=== PATIENT | female | born 1945 | race Caucasian/White ===

== ENCOUNTER 2016-06-21 13:44 | Emergency (ER) | payer MEDICARE ==
--- NOTE | ~2016-06-21 | CT4 ---
[facility] A Service of [facility] RADIOLOGY TEXT RESULTS PATIENT: NOELLE BHATT LOCATION: [facility] : [birth year] UNIT #: [id number] AGE: [address]: Lalo Kline MD SEX: F ORDER DR: [id number] [facility] [address] [place], [place] [address] [id number] MR#: [id number] Acc #: [id number] NAME: NOELLE BHATT. : 1945 SEX: F STUDY DATE/TIME: 06/21/2016 15:22 UNIT: JESSICA ROOM: STUDY DESCRIPTION: CT Abd and Pelv Wo Cont Attending Physician: Lalo Kline M.D. Primary Care Physician: Dori Dillard M.D. MEDICAL IMAGING REPORT This report is preliminary unless electronic signature is present EXAM CT of the abdomen and pelvis. DATE OF EXAM 06/21/2016 INDICATIONS Hematochezia. Diarrhea. TECHNIQUE CT of the abdomen and pelvis without contrast. Coronal and sagittal reconstructions were obtained. NOTE: This CT exam was performed with one or more of the following radiation dose reduction techniques: automatic exposure control, adjustment of mA and/or kV according to patient size, and iterative reconstruction. COMPARISON None available. FINDINGS ABDOMEN: There is a long segment of circumferential thickening of the descending colon and sigmoid colon indicative of a colitis. There is no abscess or perforation. There is mild pericolonic inflammation. The appendix is normal. The bowel is not dilated. There is a small volume of ascites in the pelvis. The solid abdominal organs are within normal limits. There is no urinary calculi. No hydronephrosis. There is a benign cyst in the superior pole of the left kidney. The gallbladder is not distended. PELVIS: No pelvic mass. The uterus is surgically absent. The ovaries are within normal limits. There is mild pelvic floor insufficiency with descent of all 3 pelvic floor compartments below the pubococcygeal line. [facility] A Service [facility] RADIOLOGY TEXT RESULTS PATIENT: NOELLE BHATT LOCATION: [facility] : 47 UNIT #: [id number] AGE: [address]: Lalo Kline MD SEX: F ORDER DR: No acute osseous abnormalities. IMPRESSION 1. Long segment of circumflex thickening and inflammation of the descending colon and sigmoid colon indicative of a colitis. Dictated by... Ibrahima Mondragon M.D. THIS IS AN ELECTRONICALLY VERIFIED REPORT Ibrahima Mondragon M.D. at 06/25/2016 9:41 AM ZULEIMA/skye TD: 06/21/2016 18:37 JOB #: [id number] MEDICAL IMAGING REPORT Page 1 of 1 COPY
[~2016-06-21 13:44] MED LIST: ACETAMINOPHEN325 MG PO; AMLODIPINE BESY10 MG PO; ASPIRIN PO; ASPIRIN81 MG PO; CARDURA8 MG PO; CHLORTHALIDONE25 MG PO; EFFIENT10 MG PO; GLUCOPHAGE500 MG PO; GLYBURIDE2.5 M1 PO; HYDRALAZINE HCL25 MG PO; HYDROCHLOROTHIA25 MG PO; HYDROCODONE-APA1 T41 PO; IMDUR PO; IMDUR-ER60 M1 PO; ISOSORBIDE DINI40 MG PO; LEVOFLOXACIN750 MG PO; LEVOTHROID200 MCG PO; LISINOPRIL PO; LOPRESSOR PO; METFORMIN HCL500 M1 PO; METOPROLOL SUCC25 MG PO; METOPROLOL TART25 MG PO; NITROGLYGERIN0.4 MG SL; NITROGYLCERIN SUBLINGUAL; NORVASC PO; PAXIL PO; PLAVIX PO; PRAVASTATIN SOD40 MG PO; PRINIVIL40 MG PO; SYNTHROID175 MCG PO; TOPROL XL50 MG PO; TRAMADOL HCL50 M1 PO; VERAPAMIL ER120 M1 PO
[2016-06-21 14:00] LABS: BASOPHIL% 0.4 % (0-2.5); EOSINOPHIL# 0.1 X10e3 (0-0.7); EOSINOPHIL% 1.2 % (0.0-7.0); HEMATOCRIT 32.5 % (35.0-45.0); HEMOGLOBIN 10.3 gm/dL (12.0-16.0); LYMPHOCYTE# 2.1 X10e3 (1.0-3.5); MEAN CORPUSCULAR HGB CONC 31.7 g/dL (30-36); MEAN PLATELET VOLUME 8.9 FL (6.5-11.5); MONOCYTE# 0.7 X10e3 (0-1.0); MONOCYTE% 7.9 % (3.0-12.0); NEUTROPHIL# 5.8 X10e3 (1.5-7.1); NEUTROPHIL% 66.5 % (40-75); PLATELET COUNT 278 X10e3 (140-420); RED BLOOD COUNT 4.12 X10e (3.90-5.30); RED CELL DISTRIBUTION WIDTH 14.3 % (11.0-15.5); WHITE BLOOD COUNT 8.7 X10e3 (4.0-10.5)
[2016-06-21 14:01] LABS: DIFF IND NO
[2016-06-21 14:13] LABS: PROTHROMBIN TIME (PATIENT) 10.7 SECONDS (9.6-11.5)
[2016-06-21 14:26] LABS: ALBUMIN SERUM 3.5 g/dL (3.5-5.0); ALKALINE PHOSPHATASE 53 U/L (32-92); ALT (SGPT) 10 U/L (10-40); AST (SGOT) 13 U/L (10-42); BILIRUBIN, DIRECT <0.1 mg/dL (0.0-0.2); BILIRUBIN,INDIRECT 0.3 mg/dL (0.0-0.9); BILIRUBIN,TOTAL 0.4 mg/dL (0.2-2.0); BLOOD UREA NITROGEN 22 mg/dL (9-23); BUN/CREATININE RATIO 18.33; CALCIUM SERUM 9.3 mg/dL (8.4-10.2); CARBON DIOXIDE 26 mmol/L (22-31); CHLORIDE 99 mmol/L (100-111); CREATININE SERUM 1.2 mg/dL (0.6-1.4); GLOM FILT RATE Estimated 46.4 mL/min (>60); GLUCOSE FASTING 185 mg/dL (70-110); POTASSIUM 3.8 mmol/L (3.5-5.1); PROTEIN TOTAL SERUM 7.2 g/dL (6.0-8.3); SODIUM 136 mmol/L (135-145)
[2016-09-03] MEDS ORDERED: AMLODIPINE BESY10 MG PO (14:10)
[2016-09-03] MEDS ORDERED: LEVOTHYROXINE150 MCG PO (14:10)
[2016-09-03] MEDS ORDERED: FIBER GUMMIES1 EACH PO (14:11)
== END 2016-06-21 16:40 | disposition home or self-care (01) ==
LOC: CED 13:44
PROVIDERS: Emergency Medicine
DX: K52.9 Noninfective gastroenteritis and colitis, unspecified (principal); I10 Essential (primary) hypertension; E11.9 Type 2 diabetes mellitus without complications
CPT/HCPCS: 36415; 74176; 80048; 80076; 85025; 85610; 85730; 86850; 86900; 86901; 96360; 99284

== ENCOUNTER 2016-07-05 15:28 | Inpatient (IN) | payer OTHER, MEDICARE ==
--- NOTE | ~2016-07-05 | OR ---
Unit #: [id number] #: [id number] Patient: NOELLE BHATT [id number] [address] [place], [place] [address] [id number] MR#: [id number] NAME: NOELLE BHATT. ROOM: [facility] Date of Procedure: 07/11/2016 Admission Date: 07/05/2016 Surgeon: Stevie Eaton Jr., M.D. : 1945 Attending Physician: Connie Davila M.D. Primary Care Physician: Dori Dillard M.D. OPERATIVE REPORT INDICATIONS FOR PROCEDURE The patient is a 70-year-old white female, who was admitted with evidence of GI bleeding. She has been worked up and noted to have two cancers of the colon, one at the sigmoid distally and one at the ileocecal valve area. She also was noted to have a large polyp, which was biopsied of the proximal sigmoid and there was a question of whether she may have some colitis involving the left colon. It was felt that the patient needed a subtotal colectomy and she is brought to the operating room at this time for this procedure. PREOPERATIVE DIAGNOSES Multiple cancers of the colon with possible colitis. POSTOPERATIVE DIAGNOSES Multiple cancers of the colon with possible colitis without evidence of any gross metastatic disease, although she had some questionable firm lymph nodes in the pelvic area. ANESTHESIA General with endotracheal intubation. PROCEDURES PERFORMED Exploratory laparotomy with subtotal colectomy and [id number] NAHEED ileoproctostomy. DESCRIPTION OF PROCEDURE The patient was positioned in supine position. After being anesthetized and intubated, she was prepped and draped in routine fashion for exploration through midline incision. An incision was made extending 3 to 4 inches above the umbilicus and 3 inches below the umbilicus. This was carried down through the subcutaneous tissue down through the linea alba of the peritoneal cavity. Upon opening the peritoneal cavity, there was no free intra-abdominal fluid. The remainder of the incision was opened with the cutting edge of the Bovie cautery. Intra-abdominal exploration was carried out. There was a palpable mass in the cecum corresponding to the one tattooed and one also in the distal sigmoid colon without evidence of any external spread of the tumor and no evidence of any hepatic metastases. There were some palpable lymph nodes at the base of the sigmoid colon that were questionable as far as positivity. No ascites. No carcinomatosis or other abnormalities. At this point, the distal ilium was freed up along with the ileocecal valve area and the appendix and the Unit #: [id number] #: [id number] Patient: NOELLE BHATT distal ileum was then stapled and transected with a NAHEED stapling device. Mesenteric vessels were taken near their base, especially of the ileocolic artery after being clamped, divided, and ligated with heavy silk 0 and #1 sutures. The mesentery of the right colon was then clamped, divided, and ligated with 0 silk sutures. The mesentery of the transverse colon around the hepatic flexure was then mobilized and several vessels in the hepatocolic ligament were hemoclipped and divided. The mesenteric vessels in the transverse colon were then clamped, divided, and ligated with 0 silk sutures. The splenic flexure was taken down with vessels being either hemoclipped or ligated with 0 silk sutures or cauterized with the Bovie cautery. There was no evidence of any splenic injury after the splenic flexure was taken down. The left colon was then freed up all the way down to the distal sigmoid, where there was a tattoo from the previous scope and palpable tumor with no evidence of any externally spread tumor. The mesentery on the left colon was likewise clamped, divided, and ligated with [address] down past the tumor. Using a contour stapler, the distal colon was stapled and transected. The ureters on both sides were easy to identify and well away from any injury or dissection. After the specimen was removed, it was sent to pathology. There were some firm pelvic lymph nodes in the area of where the tumor was distally and these were dissected free of the surrounding tissue with special attention to the ureters and several small vessels were hemoclipped and divided and the lymph node on the left pelvic area and some lymph nodes posterior to the sigmoid in the sacral hollow were sent separately. After hemostasis was achieved with the Bovie cautery and several stick ties, the pelvis was irrigated and the distal ileum brought down and anastomosed fzky-[id number] to the distal sigmoid rectal area with a NAHEED stapling device. The staple line was checked. There was no evidence of any bleeding. The remaining opening closed with continuous 3-0 Vicryl Delmi stitch followed by interrupted 3-0 silk Lembert sutures. The mesenteric defect was closed with several 2-0 silk smnubu-gc-cltzc sutures. The abdomen was copiously irrigated with saline solution. A #7 Samuel-Sepulveda drain was placed in the pelvic area and brought out through the lateral site in the right lateral lower abdominal wall area. After hemostasis was noted, the midline was closed with interrupted #1 Vicryl suture, single fascial layer closure. The subcu was irrigated and after hemostasis was achieved with Bovie cautery, skin edges were approximated with stainless-steel skin clips and skin stapling device. Sterile dressings were applied externally. Estimated blood loss was less than 350 mL. The patient received less than 6000 mL crystalloid solution during the procedure. Sponges and instruments counts were correct x3. There were no drains used except the Samuel-Speulveda in the pelvic area and no complications. The patient was taken to the recovery room with stable vital signs in satisfactory condition. Dictated by... Stevie Eaton Jr., MMorgan CARTWRIGHT/adarsh TD: 07/12/2016 14:32 JOB #: [id number] Unit #: [id number] #: [id number] Patient: NOELLE BHATT OPERATIVE REPORT Page 1 of 1 X Stevie Eaton MD X PROCEDURE OPERATIVE NOTE
--- NOTE | ~2016-07-05 | DS ---
Unit #: [id number] #: [id number] Patient: NOELLE BHATT [id number] [address] [address] [id number] I MR#: [id number] NAME: NOELLE BHATT. ROOM: [facility] Age: 70 Sex: F Admission Date: 07/05/2016 : 1945 Discharge Date: 07/16/2016 Attending Physician: Connie Davila M.D. Primary Care Physician: Dori Dillard M.D. DISCHARGE SUMMARY DISCHARGE DIAGNOSES 1. Multiple cancers of the colon with no evidence of gross metastasis. 2. Possible acute colitis. 3. GI bleed. 4. Anemia secondary to acute blood loss. 5. Coronary artery disease. 6. Hypertension. 7. Diabetes mellitus type 2, uncontrolled. 8. Hyperlipidemia. 9. Hypothyroidism. 10. Hypokalemia. 11. Hypomagnesemia. 12. Moderate protein malnutrition. 13. Mild hyponatremia. 14. Elevated CEA at 6.3. CONSULTANTS Dr. Eaton. Dr. Tavarez. PROCEDURES PERFORMED The patient had colonoscopy which showed colon masses arising from the ileocecal valve. Also, the second mass in the sigmoid area. The patient had exploratory laparotomy with subtotal colectomy and brgf-kq-ndoe ileal proctostomy. DIAGNOSTIC DATA LABORATORY: Glucose 158, sodium 133, potassium 3.2, creatinine 0.8, carbon dioxide 28, AST 14, ALT 10, alkaline phosphatase 29, total bilirubin 0.5, albumin 2.4, magnesium 1.5, phosphorus 3.0, white blood cell count 6.0, hemoglobin 9.0, platelets 258. IMAGING: CAT scan of the abdomen and pelvis shows long segment of circumflex, thickening and inflammation of the descending colon and sigmoid colon, indicative of colitis. ALLERGIES No known drug allergies. DISCHARGE MEDICATIONS 1. Metformin 500 mg p.o. b.i.d. 2. Loperamide 2 mg p.o. b.i.d. p.r.n. diarrhea. 3. Zofran 4 mg q.4 h. p.r.n. nausea. 4. Bentyl 20 mg t.i.d. Unit #: [id number] #: [id number] Patient: NOELLE BHATT 5. Coreg 6.25 mg p.o. b.i.d. 6. Norvasc 10 mg p.o. daily. 7. Lipitor 20 mg daily. 8. Lisinopril 40 mg daily. 9. Lortab 5 mg q.4 h. p.r.n. pain. 10. Synthroid 137 mcg p.o. daily. 11. Potassium 20 mEq p.o. daily. HOSPITAL COURSE The patient is a 70-year-old admitted because of diarrhea and bleeding per rectum. Multiple colon cancers: The patient was seen by Dr. Tavarez. The patient had a colonoscopy that showed more than one mass. Later LSA had been consulted and the patient had subtotal colectomy with avhp-ht-[id number] ileal proctostomy. Currently she is having diarrhea. She has mild nausea, but tolerating diet okay. The patient is okay to be discharged as per surgeon. GI bleed secondary to colon mass. Currently resolved. Anemia secondary to acute blood loss: No acute bleeding currently. Hemoglobin is 9.0. The patient does not need blood transfusion during the hospital course. Initial CAT scan showing colitis, most likely from the colon cancer. The patient did receive antibiotics, but she does not need antibiotics to take home. Moderate protein malnutrition. Continue with high protein diet at home. Hypertension: Well controlled. Diabetes mellitus type 2: Controlled. Coronary artery disease: The patient was seen by cardiology for preoperative clearance. The patient was started on Lipitor. I gave a prescription for it. Hypokalemia and hypomagnesemia: Replace before discharge. I am going t ogive potassium prescription for a week. The patient will have a BMP in one week time and follow up with primary care physician with results. FOLLOWUP 1. The patient will be discharged home with home health. 2. Follow up with primary care physician in one week time. 3. Follow up with Dr. Eaton in two weeks time upon discharge. Dictated by... Vinny Breaux TD: 07/16/2016 14:12 JOB #: [id number] CC: Dori Dillard M.D. Unit #: [id number] #: [id number] Patient: NOELLE BHATT DISCHARGE SUMMARY Page 1 of 1 X Connie Davila MD [facility] SUMMARY
--- NOTE | ~2016-07-05 | FU ---
[facility] Nutrition Therapy DATE: 07/15/16 Patient: NOELLE BHATT Physician: MARK Address: [address] [place] [address] Room/Bed: [address] [place] [address], Zip: [place] [address] Admit Date: 07/05/16 Date of : [birth year] Height: 5 3 Weight: 138 63 NUTRITION MONITORING/FOLLOW-UP: Reason: PT SEEN FOR FOLLOW-UP + CONSULT RE: DIET EDUCATION DX: GI BLEED Anthropometrics: 5'3", WT: 138# (63 KG), BMI: 24.4 -WEIGHTS HAVE BEEN STABLE SINCE ADMIT Labs: GLU: 162, BUN: <5, CA+:7.9, ALB: 2.4, NA+:131 Meds: D5%, LIPITOR, NOVOLOG, PHENERGAN, ZOFRAN I&O's: , 3 BMs NOTED Skin: PREVIOUSLY NOTED Estimated Nutrition Needs: INCREASED NEEDS 2' CURRENT CONDITION Assessment: CHART REVIEWED AND EVENTS NOTED. PT SEEN FOR FOLLOW-UP. PT REPORTS APPETITE SLOWLY IMPROVING, TOLERATING FULL LIQUID DIET. PT REPORTS EATING OATMEAL THIS AM. PT ADDS "I AM SLOWLY INCREASING MY PO INTAKE". PT REQUESTS FOR ENSURE CLEAR TO BE D/C'D, RD SUGGESTED OTHER SUPPLEMENTS, PT WILLING TO TRY ENSURE PUDDING BID, RD TO ORDER. RD ENCOURAGED ADEQUATE KCAL AND PROTEIN INTAKE (SLOW INTAKE), PT AGREED. RD PROVIDED WRITTEN AND VERBAL HIGH FIBER + LIST OF FOODS AND FIBER CONTENT DIET EDUCATION. PT DEMONSTRATED UNDERSTANDING OF THE TOPIC. PT REPORTED NO DIET QUESTIONS AT THIS TIME. RD TO REMAIN AVAILABLE. Dx: UNINTENTIONAL WEIGHT LOSS R/T GI SX, SUSPECTED DECREASED APPETITE AEB 3 PTS MALNUTRITION RISK SCORE.-ACTIVE INADEQUATE NUTRIENT INTAKE R/T DECREASED APPETITE, CURRENT CONDITION AE PT REPORT ABOVE.-ACTIVE ALTERED NUTRIENT NEEDS R/T CURRENT CONDITION AEB NPO/CLEAR X 5 DAYS.-RESOLVED NEW DX: ALTERED NUTRIENT NEEDS R/T DX, CURRENT CONDITION AEB PT ON FULL LIQUID DIET. Intervention: 1. FULL LIQUID DIET 2. ENSURE CLEAR D/C'D 3. ENSURE PUDDING BID 4. HIGH FIBER DIET EDUCATION Monitoring, Evaluation and Goals: [facility] Nutrition Therapy DATE: 07/15/16 Patient: NOELLE BHATT Physician: MARK Address: [address] [place] [address] Room/Bed: [address] [place] [address], Zip: [place] [address] Admit Date: 07/05/16 Date of : [birth year] Height: 5 3 Weight: 138 63 1. ORAL INTAKE; CONSUME >50% OF MEALS W/NO C/O N/V/D (PO>50%)-ACTIVE 2. WEIGHTS; PREVENT FURTHER WEIGHT LOSS-ACTIVE 3. LABS; WNL-ACTIVE 4. GI; PROMOTE REGULAR GI FUNCTION-ACTIVE MONITOR: -PO INTAKE/APPETITE -WEIGHTS -SUPPLEMENT INTAKE Recommendations: 1. PLEASE D/C ENSURE CLEAR BID W/MEALS 2. PLEASE ORDER ENSURE PUDDING (NITHYA) BID W/MEALS 3. ADVANCE DIET TOLERATED W/NO C/O N/V/D TO HIGH FIBER DIET -APPRECIATE FAMILY AND STAFF TO ENCOURAGE ADEQUATE KCAL AND PROTEIN INTAKE RD WILL F/U PER PROTOCOL PT IS MILDLY COMPROMISED Respectfully, GABRIEL DE LUNA MS, RD, LD Food and Nutritional Services [facility] cc: client file
--- NOTE | ~2016-07-05 | CO ---
Unit #: [id number] #: [id number] Patient: NOELLE BHATT [id number] [address] [place], [place] [address] [id number] I MR#: [id number] NAME: NOELLE BHATT. ROOM: 547 Age: 70 Sex: F Admission Date: 07/05/2016 : 1945 Attending Physician: Connie Davila M.D. Primary Care Physician: Dori Dillard M.D. Consultation Date: 07/09/2016 CONSULTATION REPORT BRIEF SUMMARY The patient is a 70-year-old white female, who was admitted complaining of rectal bleeding. She has also had a 20-pound weight loss over the past six months. She had a CAT scan performed approximately two weeks ago which revealed long segment of the left colon suspicious for colitis. She had been on oral antibiotics and when presented to the emergency room was noted to have a hemoglobin down the range of 8.7 g. She had felt weak at home and had no syncope though. She has a known past history for coronary artery disease and has had a stent placed and has been on Plavix chronically. She has also had a known past history for hypertension, diabetes mellitus type 2, thrombocytopenia although her platelets are normal now, hypothyroidism, and a hysterectomy. MEDICATIONS She is on multiple medications. These are listed in the nursing sheet. ALLERGIES None known. FAMILY HISTORY Remarkable for the fact her mother had pancreatic cancer but no colon cancer. SOCIAL HISTORY The patient is , lives (1) . Has a normal good appetite. No recent weight change. Nonsmoker. Nondrinker. 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 IMMUNIZATIONS Up to date. REVIEW OF SYSTEMS Twelve systems performed which are nonremarkable except that in the present illness. PHYSICAL EXAMINATION VITAL SIGNS: The patient is afebrile. Vital signs are normal. HEENT: Nonremarkable. NECK: Supple. CHEST: Equal bilateral expansion with bilateral equal breath sounds. LUNGS: Clear bilaterally. HEART: Regular rhythm without murmurs or gallops. There is no evidence of cardiomegaly clinically. ABDOMEN: Soft, nontender, benign without palpable mass or organomegaly. There is no gross abdominal distention. No guarding, rebound. Active Unit #: [id number] #: [id number] Patient: NOELLE BHATT bowel sounds present. No evidence of ascites or hernias. EXTREMITIES: Full range of motion without limitation. There is no evidence of peripheral edema. BACK: No CVA tenderness. NEUROLOGIC: Grossly intact. IMPRESSION From her colonoscopy, the patient has two cancers (one of the ileocecal valve area and the other of the sigmoid area at approximately 17 cm). She also has a questionable segment of colitis and had a large polyp removed at 30 cm. At this point, would probably think she will need a subtotal colectomy but she also will need cardiac clearance. For now, I would hold her Plavix, set up blood for her operation, and go ahead with possible subtotal colectomy. Dictated by... Stevie Eaton Jr., MJayesh. GABBIE/ruma TD: 07/09/2016 14:35 JOB #: [id number] CONSULTATION REPORT Page 1 of 1 X Stevie Eaton MD X CONSULTATION REPORT
--- NOTE | ~2016-07-05 | EKG ---
PATIENT: NOELLE BHATT UNIT #: [id number] Ventricular Rate: 91 BPM Atrial Rate: 91 BPM P-R Interval: 128 ms QRS Duration: 80 ms Q-T Interval: 324 ms QTC Calculation(Bezet): 398 ms P Savannah: 71 degrees Calculated R Savannah: 43 degrees Calculated T Savannah: 61 degrees Diagnosis Line: Normal sinus rhythm Diagnosis Line: Left ventricular hypertrophy Diagnosis Line: Abnormal ECG Diagnosis Line: When compared with ECG of 05-SEP-2013 12:33, Diagnosis Line: Vent. rate has increased BY 30 BPM Diagnosis Line: ST now depressed in Anterior leads Diagnosis Line: T wave inversion now evident in Inferior leads Diagnosis Line: T wave inversion less evident in Lateral leads Diagnosis Line: Confirmed by LEANDRO MONAHAN MD ([id number]) on Diagnosis Line: 07/09/2016 10:27:03 PM INTERPRETING MD: KELLEY
--- NOTE | ~2016-07-05 | FU ---
[facility] Nutrition Therapy DATE: 07/10/16 Patient: NOELLE BHATT Physician: MARK Address: [address] [place] [address] Room/Bed: [address] [place] [address], Zip: [place] [address] Admit Date: 07/05/16 Date of : [birth year] Height: 5 3 Weight: 138 62.8 NUTRITION MONITORING/FOLLOW-UP: Reason: PT SEEN FOR FOLLOW-UP DX: GI BLEED Anthropometrics: 5'3", WT: 138# (63 KG), BMI: 24.4 -WEIGHTS HAVE BEEN STABLE SINCE ADMIT-ADMIT WEIGHT: 141# Labs: K+:3.2, GLU: 120, BUN: 8, ALB: 2.9, AST: 9, ALT: 7, LIPASE: 15 Meds: KCL, ZOFRAN, NOVOLOG, NACL I&O's: 2815/1378, 3 BMs NOTED Skin: ISSUES NOTED IN RD ASSESSMENT 07/06/16 Estimated Nutrition Needs: 9018-7724 KCAL (25-30 KCAL/KG BW) 64-83 G PRO (1.0-1.3 G PRO/KG BW) FLUIDS CONSISTENT W/KCAL NEEDS Assessment: CHART REVIEWED AND EVENTS NOTED. PT SEEN FOR FOLLOW-UP. PT REPORTS POOR/FAIR PO INTAKE 2' DECREASED APPETITE, NOTING C/O N/D. OF NOTE, PT IS NPO/CLEAR X [address] FOR SUBTOTAL COLECTOMY TOMORROW 07/12/16, ?COLITIS. THIS RD ENCOURAGED ADEQUATE KCAL AND PROTEIN INTAKE AND SUPPLEMENT INTAKE (ENSURE CLEAR ORDERED), PT REQUESTS DIFFERENT FLAVOR-APPLE, RD WILL ORDER. PT REPORTED NO DIET QUESTIONS AT THIS TIME. RD TO CONTINUE TO FOLLOW. Dx: UNINTENTIONAL WEIGHT LOSS R/T GI SX, SUSPECTED DECREASED APPETITE AEB 3 PTS MALNUTRITION RISK SCORE.-ACTIVE NEW DX: INADEQUATE NUTRIENT INTAKE R/T DECREASED APPETITE, CURRENT CONDITION AEB PT REPORT ABOVE. -ALTERED NUTRIENT NEEDS R/T CURRENT CONDITION AEB NPO/CLEAR X 5 DAYS. Intervention: 1. CLEAR LIQUID DIET 2. APPLE ENSURE CLEAR TID W/MEALS Monitoring, Evaluation and Goals: GOALS NOT MET 1. ORAL INTAKE; ADVANCE DIET AND TOLERATE DIET W/NO C/O N/V/D (PO>50%) 2. LABS; WNL 3. GI; PROMOTE REGULAR GI FUNCTION 4. WEIGHTS; PREVENT WEIGHT LOSS [facility] Nutrition Therapy DATE: 07/10/16 Patient: NOELLECRISTOFER BHATT Physician: MARK Address: [address] [place] [address] Room/Bed: [address] [place] [address], Zip: [place] [address] Admit Date: 07/05/16 Date of : [birth year] Height: 5 3 Weight: 138 62.8 MONITOR: -DIET ADVANCEMENT -PO INTAKE/APPETITE -WEIGHTS -SUPPLEMENT INTAKE Recommendations: 1. CONTINUE TO ENCOURAGE PO AND SUPPLEMENT INTAKE 2. ONCE MEDICALLY FEASIBLE, BEGIN WITH FULL LIQUID DIET, ADVANCE DIET TOLERATED TO GI SOFT/LOW FIBER/CC 2' CURRENT CONDITION 3. CONSULT RD FOR ALTERNATIVE NUTRITION SUPPORT RECOMMENDATIONS IF PT UNABLE TO TOLERATE PO INTAKE RD WILL F/U PER PROTOCOL PT IS MODERATELY COMPROMISED Respectfully, GABRIEL DE LUNA MS, RD, LD Food and Nutritional Services [facility] cc: client file
--- NOTE | ~2016-07-05 | HP ---
Unit #: [id number] #: [id number] Patient: NOELLE BHATT [id number] [address] [place], [place] [address] [id number] MR#: [id number] NAME: NOELLE BHATT. ROOM: Age: 70 Sex: F Admission Date: 07/05/2016 : 1945 Attending Physician: Saul Jones D.O. Primary Care Physician: Dori Dillard M.D. HISTORY AND PHYSICAL REVISED REPORT CHIEF COMPLAINT Bloody diarrhea. HISTORY OF PRESENT ILLNESS The patient is a 70-year-old female with a history of a coronary artery disease, status post PCI back in 2012 and hypertension, hyperlipidemia and diabetes mellitus type 2, presented to the emergency room with the worsening bloody diarrhea. The patient was seen here on June 21 for the similar reasons. The patient had a CT of the abdomen and pelvis on June 21 that showed long segment of circumflex thickening and inflammation of the descending colon and sigmoid colon indicative of colitis. The patient was discharged home on Flagyl and Cipro. The patient took the antibiotics for seven days. The patient stated the abdominal pain is decreased however the diarrhea with the bloody stools continues. The patient had the blood work in the emergency room that showed hemoglobin of 8.6 down from 10.3 from June 21 and being admitted for the above reasons. The patient denies any abdominal pain, nausea or vomiting, fever, chills, shortness of breath or dizziness. PAST MEDICAL HISTORY History of coronary artery disease, hypertension, hyperlipidemia, type 2 diabetes mellitus, history of thrombocytopenia, hypothyroidism. PAST SURGICAL HISTORY History of a hysterectomy and a stent placement. 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 No history of smoking, alcohol or any illicit drug abuse. FAMILY HISTORY Not significant for coronary artery disease and reviewed and none. ALLERGIES No known drug allergies. HOME MEDICATIONS She is on baby aspirin and denies taking any Plavix. Tylenol. Combivent, Norvasc, Lipitor and levothyroxine. REVIEW OF SYMPTOMS Fourteen-point review of symptoms performed and only pertinent positive Unit #: [id number] #: [id number] Patient: NOELLE BHATT findings as described above, remaining are negative. PHYSICAL EXAMINATION GENERAL APPEARANCE: On examination the patient is lying on a bed not in acute distress. VITAL SIGNS: Temperature 98, pulse 104, respiration 15, blood pressure of 145/68, sating 100% at room air. HEENT: Head atraumatic, normocephalic. Pupils equal, round and reacting to light and accommodation. Extraocular movements are intact. NECK: Supple. No JVD. LUNGS: Decreased air entry at the bases. HEART: Regular rate and rhythm. ABDOMEN: Soft, positive bowel sounds, no tenderness. EXTREMITIES: No cyanosis. No clubbing. NEUROLOGIC: Alert, awake, oriented. No gross focal motor deficit. DIAGNOSTIC STUDIES LABORATORY DATA: Glucose 168, BUN 24, creatinine 1, sodium 135, potassium 3.7, chloride 100, bicarb 25, calcium 9.3, total protein 7.6, albumin 3.5, AST 12, ALT 10, alkaline phosphatase 44, lipase 15, INR is 1, troponin less than 0.05, WBC 6.6, hemoglobin 8.6, hematocrit 27.3, platelets 289. ASSESSMENT 1. Rectal bleeding. 2. Anemia. 3. History of colitis, finished antibiotics. 4. Hypertension. 5. Diabetes. PLAN 1. Plan to admit the patient to the inpatient with the telemetry. 2. Continue the IV fluids at 75 mL per hour. 3. Continue with the clear liquid diet. 4. Type and cross one unit of RBCs. 5. Hold the aspirin. 6. Check the lactic acid. 7. Sliding scale low dose and Accu-Chek q.a.c. and h.s. 8. GI consult with Dr. Vargas and the patient will be scheduled for the colonoscopy next Friday with Dr. Vargas. Further recommendations will follow as more lab results are available. Dictated by Vinny Haider TD: 07/05/2016 16:25 JOB #: [id number] Unit #: [id number] #: [id number] Patient: NOELLE BHATT HISTORY AND PHYSICAL Page 1 of 1 X X HISTORY AND PHYSICAL
--- NOTE | ~2016-07-05 | A ---
[facility] Nutrition Therapy DATE: 07/06/16 Patient: NOELLE BHATT Physician: MARK Address: [address] [place] [address] Room/Bed: [address] [place] [address], Zip: [place] [address] Admit Date: 07/05/16 Date of : [birth year] Height: 5 3 Weight: 141 64.4 NUTRITIONAL ASSESSMENT: REASON: 3 points malnutrition risk score re: 17 lb unintentional weight loss Admitting Dx: 70 y/o female admitted with ?GIB PMH: Obtained from most recent H&P (2013): CAD, HTN, HLD, DM, hypothyroidism, syncope *No new H&P available at this time Anthropometrics: Ht: 65", Wt: 64.4 kg (141 lbs), BMI: 23.5 (normal) Past weights: 146-163 lbs (2012), 142-147 lbs (2013), 148 lbs 06/21/16 Labs: Glucose 135, POC 152, Hemoglobin 9.1 (up from 8.6), A1C 10.0 (2012), other labs WNL Meds: Levoxyl (Synthroid), Chlorthalidone, Coreg, Novolog (low SSI), NSIV @ 75 ml/hr I/O & Bowel function: LBM 07/05 Skin Integrity: Scar noted, no edema Assessment: Chart reviewed, events noted. See admitting dx and PMH as stated above. Although patient was admitted with ?GIB, CT of abdomen/pelvis showed colitis. RD assessing due to reported 17 lb weight loss in an unknown time frame, I assume due to the patient's GI sx and decreased appetite. I am unable to interview her at this time as she is not feeling well and is sleeping. She is currently on a clear liquid diet. RD previously assessed on 05/26/12 and provided CC/HHD education per consult. Past weights are variable (see above), may reflect weight loss. See RD recs below, will follow to determine tolerance of diet advancement and further nutritional needs. Dx: Unintentional weight loss r/t GI sx, suspected decreased appetite AEB 3 points malnutrition risk score. Intervention: Advance diet as tolerated, monitor PO intake and need for ONS, check A1C/lipid panel Monitoring, Evaluation and Goals: 1. Tolerance of diet advancement with minimal c/o N/V/D. 2. PO intake > 50% of meals once diet advanced. 3. Maintain current weight status. 4. Glucose will remain WNL. Monitor: Per protocol, criteria to determine if above goals met [facility] Nutrition Therapy DATE: 07/06/16 Patient: NOELLE BHATT Physician: MARK Address: [address] [place] [address] Room/Bed: [address] [place] [address], Zip: [place] [phone] Admit Date: 07/05/16 Date of : [birth year] Height: 5 3 Weight: 141 64.4 Recommendations: 1. Once the patient is tolerating clear liquids advance to full liquids, then GI soft/consistent carb if patient positive for GI bleed. If no GI bleed was found, GI soft restriction is not necessary. 2. Monitor PO intake; if < 50% of meals please order Ensure Enlive BID or Ensure Clear TID. 3. Please weigh q 3 days for monitoring purposes. 4. Consider checking new A1C lab and lipid panel due to PMH. Monitor hemoglobin. RD will follow hospital course Moderate nutrition risk Respectfully, Kylie Funez, ESTEFANIA, LD [employer] [facility] cc: client file
--- NOTE | ~2016-07-05 | CO ---
Unit #: [id number] #: [id number] Patient: NOELLE AGARWAL [id number] [address] [place], [place] [address] [id number] MR#: [id number] NAME: NOELLE AGARWAL. ROOM: 547 Age: 70 Sex: F Admission Date: 07/05/2016 : 1945 Attending Physician: Cameron Martin M.D. Primary Care Physician: Dori Dillard M.D. Consultation Date: 07/08/2016 CONSULTATION REPORT REASON FOR CONSULTATION Hematochezia and bloody diarrhea. HISTORY Ms. Agarwal is a pleasant 70-year-old white female who has presented with a history of substantial cramping in the lower abdomen, followed by hematochezia multiple times. The patient is feeling much better (1) . The patient did have circumferential involvement of the colon on a CAT scan in the area of the descending and transverse colon. She has been started on ciprofloxacin and Flagyl. There is no history of fever, chills or rigors. PAST MEDICAL HISTORY Her past medical history is significant for history of hypertension, hyperlipidemia, type 2 diabetes, history of hypothyroidism, thrombocytopenia and coronary artery disease. PAST SURGICAL HISTORY Previous surgeries include a hysterectomy and a coronary stent placement. SOCIAL HISTORY The patient does not smoke, drink alcohol. 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 FAMILY HISTORY Significant for coronary artery disease; none of colon or pancreas cancer or liver disease. MEDICATIONS The patient's medications include aspirin and Plavix, along with Tylenol, Combivent, Norvasc, Lipitor and levothyroxine. ALLERGIES She has no known drug allergies. REVIEW OF SYSTEMS A detailed review of organ systems does not reveal any recent weight loss. No history of fevers, chills or rigors. There is no history of headache, seizures, chest pain or syncope. No history of cough, expectoration or hemoptysis. No history of dysuria, hematuria or polyuria. No history of focal seizures or extremity weakness. The rest of the review of organ systems is unremarkable. PHYSICAL EXAMINATION Unit #: [id number] #: [id number] Patient: NOELLE AGARWAL GENERAL: On examination, she is alert and oriented and appears comfortable. VITAL SIGNS: Vital signs are stable with a temperature of 98, pulse 80 per minute and regular, respiratory rate 18, and blood pressure is 123/61. She weighs 141 pounds, which is close to her baseline weight. GENERAL: She has mild pallor, there being no icterus, lymphadenopathy or peripheral edema. CARDIOVASCULAR: Normal heart sounds. No murmurs on auscultation. RESPIRATORY: The lungs reveal normal breath sounds, good air entry. ABDOMEN: The abdomen is soft and nontender. The liver and spleen are not palpable. Bowel sounds are normal. DIAGNOSTIC STUDIES LABORATORY: Lab evaluation shows a normal white count, hemoglobin of 8.6, platelet count 262. Serum chemistry shows normal BUN and creatinine and electrolytes. Albumin is 3.2. IMAGING: A CT scan of the abdomen is consistent with ischemic colitis. CLINICAL IMPRESSION Most likely diagnosis in this patient is ischemic colitis. A colonoscopy is warranted to confirm the diagnosis. Other possibilities include that of internal hemorrhoidal bleeding and colorectal neoplasia. The pros and cons of colonoscopy, potential risks and complications were discussed with the patient, and she was reassured. Thank you for asking me to see this pleasant lady. I appreciate the consult. Dictated by... Vinny Miles/ranjeet TD: 07/09/2016 08:12 JOB #: [id number] CONSULTATION REPORT Page 1 of 1 X Gui Tavarez MD CONSULTATION REPORT
--- NOTE | ~2016-07-05 | DS ---
Unit #: [id number] #: [id number] Patient: NOELLE BHATT [id number] [address] [address] [id number] I MR#: [id number] NAME: NOELLE BHATT. ROOM: 547 Age: 70 Sex: F Admission Date: 07/05/2016 : 1945 Discharge Date: Attending Physician: Connie Davila M.D. Primary Care Physician: Dori Dillard M.D. DISCHARGE SUMMARY DISCHARGE DIAGNOSES 1. Gastrointestinal bleed. 2. Anemia, secondary to blood loss. 3. Recent sigmoid colitis, status post treatment. 4. Coronary artery disease. 5. Hypertension. 6. Hyperlipidemia. 7. Type 2 diabetes. 8. Thrombocytopenia history. 9. Hypothyroidism. CONSULTATION Dr. Tavarez. PROCEDURE Patient is going for colonoscopy today. DIAGNOSTIC STUDIES LABORATORY: Glucose 108, creatinine 0.8, hemoglobin 8.7, WBC 4.8. ALLERGIES None. DISCHARGE MEDICATIONS 1. Metformin 500 p.o. b.i.d. 2. Coreg 6.25 p.o. b.i.d. 3. Norvasc 10 daily. 4. Chlorthalidone 50 daily. 5. Lisinopril 40 p.o. b.i.d. 6. Synthroid 137 mcg p.o. daily. HOSPITALIZATION COURSE A 70 year old admitted because of blood in stool. Lower GI bleed: Most likely secondary to recent colitis. Patient is going for colonoscopy today. Anemia secondary to acute blood loss: Patient currently no active bleeding. Patient did not need any blood transfusion. Hemoglobin 8.7. Recent sigmoid colitis: Patient completed antibiotics. Currently, she is not on antibiotics. After colonoscopy if she needs, Dr. Tavarez will suggest. Unit #: [id number] #: [id number] Patient: NOELLE BHATT DISCHARGE INSTRUCTIONS 1. Patient will be discharged today after colonoscopy. 2. Antibiotics per Dr. Tavarez. 3. Follow with PCP in one week time. Dictated by... Vinny Breaux TD: 07/08/2016 14:44 JOB #: [id number] DISCHARGE SUMMARY Page 1 of 1 X Connie Davila MD [facility] SUMMARY
--- NOTE | ~2016-07-05 | EKG ---
PATIENT: NOELLE BHATT UNIT #: [id number] Ventricular Rate: 75 BPM Atrial Rate: 75 BPM P-R Interval: 140 ms QRS Duration: 84 ms Q-T Interval: 386 ms QTC Calculation(Bezet): 431 ms P Cashion: 53 degrees Calculated R Cashion: 16 degrees Calculated T Cashion: 42 degrees Diagnosis Line: Normal sinus rhythm Diagnosis Line: Nonspecific T wave abnormality Diagnosis Line: Abnormal ECG Diagnosis Line: When compared with ECG of 09-JUL-2016 09:46, Diagnosis Line: Nonspecific T wave abnormality has replaced Diagnosis Line: inverted T waves in Anterolateral leads Diagnosis Line: Confirmed by ISATU IRWIN MD ([id number]) on 07/10/2016 Diagnosis Line: 10:39:38 PM INTERPRETING MD: ALIDA GAO
--- NOTE | ~2016-07-05 | OR ---
Unit #: [id number] #: [id number] Patient: NOELLE BHATT [id number] [address] [place], [place] [address] [id number] I MR#: [id number] NAME: NOLELE BHATT. ROOM: 547 Date of Procedure: 07/06/2016 Admission Date: 07/05/2016 Surgeon: Gui Tavarez M.D. : 1945 Attending Physician: Connie Davila M.D. Primary Care Physician: Dori Dillard M.D. OPERATIVE REPORT PRIMARY CARE PHYSICIAN Dori Dillard MD. PREOPERATIVE DIAGNOSES Hematochezia and cramping in the abdomen. PROCEDURES PERFORMED 1. Colonoscopy and biopsies. 2. Colonoscopy and polypectomy. 3. Colonoscopy with submucosal injection. POSTOPERATIVE DIAGNOSES 1. 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 This was clearly nonobstructing and was extensively biopsied. In addition, the area surrounding it was tattooed using Leonela ink. The second mass was seen in the sigmoid at 15 to 16 cm from the anus extending for about 4 cm. It was circumferential ulcerated friable exophytic mass with a classic apple-core appearance. This was also extensively biopsied. The mucosa immediately proximal and distally was also tattooed using Leonela ink. 2. A 2.5 cm flat sessile adenoma which had a villous appearance in the mid sigmoid about 30 cm from the anal margin. This was removed using snare cautery polypectomy. It was retrieved and sent for histology. 3. Rest of the examination up to cecum was normal. The patient did not have any diverticulosis nor any hemorrhoids. RECOMMENDATIONS The patient will most likely require two resections and anastomosis. A surgical consult will be obtained for resection and anastomosis. In addition, the patient will be kept on clear liquid diet. We will also obtain CBC, CMP, and CEA levels in the morning labs. SEDATION USED MAC. DESCRIPTION OF PROCEDURE Following detailed explanation of the potential risks and complications of a colonoscopy, namely perforation, bleeding, and complications related to sedation, the patient was brought to GI lab and laid in the left lateral decubitus position. A digital rectal examination was performed, which was Unit #: [id number] #: [id number] Patient: NOELLE BHATT normal. Lubricated tip of the Olympus video colonoscope was inserted through the anus and advanced under direct vision. The scope was advanced past rectum into the sigmoid colon. A circumferential exophytic ulcerated mass was noted in the distal sigmoid at about 15 to 16 cm from the anal margin. There was central ulceration. The lumen was patent. The scope was then advanced gently through this area into the proximal sigmoid, where a sessile villous adenoma was noted at around 30 cm. The scope tip was then navigated all the way up to cecum with visualization of ileocecal valve and the appendiceal orifice. Preparation was excellent with good visualization and photodocumentation was obtained. A second mass was seen in the cecum arising from the ileocecal valve and protruding into the lumen of the cecum. The terminal ileum itself was patent. The mass was exophytic, ulcerated, friable and fungating. It was also extensively biopsied and the mucosa surrounding it was tattooed using Leonela ink. Successive segments of the colonic mucosa were then examined upon withdrawal. Attention was focused on the sigmoid polyp, which was removed using snare cautery polypectomy. Excellent hemostasis was achieved and photodocumentation was obtained. We then obtained extensive biopsies of the distal sigmoid mass and the mucosa immediate proximal and distally was then tattooed using Leonela ink. The scope was then withdrawn. The patient returned to the recovery area. She tolerated the procedure without any postprocedure complications. Dictated by... Vinny Miles TD: 07/08/2016 21:52 JOB #: [id number] OPERATIVE REPORT Page 1 of 1 X Gui Tavarez MD X PROCEDURE OPERATIVE NOTE
--- NOTE | ~2016-07-05 | CO ---
Unit #: [id number] #: [id number] Patient: NEOLLE BHATT [id number] [facility]. [address] [place], [place] [address] [id number] I MR#: [id number] NAME: NOELLE BHATT. ROOM: 547 Age: 70 Sex: F Admission Date: 07/05/2016 : 1945 Attending Physician: Connie Davila M.D. Primary Care Physician: Dori Dillard M.D. Consultation Date: 07/09/2016 CONSULTATION REPORT REASON FOR CONSULTATION Preoperative clearance. HISTORY OF PRESENT ILLNESS This is a 70-year-old white female, previously known to our group with a past medical history of syncope in 08/2013, which was thought to be due to hypotension and weight loss. The patient had a two-dimensional echocardiogram 09/06/2013 which revealed mild LVH. Ejection fraction was greater than or equal to 55%. There was mild to moderate valvular disease and moderate to severe pulmonary hypertension. A 24-hour Holter monitor was obtained also at that time and revealed some PVCs and PACs as well as a 6-beat run of atrial tachycardia. Previous Lexiscan Cardiolite stress test was completed 01/13/2013, which revealed no ischemia. The patient did have a cardiac catheterization prior to the stress test in 05/2012. She underwent PCI and stent placement in the mid LAD. She is known to have hypertension, hyperlipidemia, diabetes mellitus type 2, hypothyroidism and chronic thrombocytopenia. The patient presented to the emergency department with complaints of bloody stools for the past one week. She had recently been diagnosed with colitis and completed a course of antibiotics. She denies fever or chills. No reports of nausea or vomiting. She has had some abdominal cramping intermittently. There are no reports of chest pain with rest or exertion. She denies shortness of breath with rest or exertion. There are no reports of PND, orthopnea or lower extremity edema. She has been compliant with her medications. She is a lifetime nonsmoker. In the examination her temperature was 98, pulse 104, respiratory rate 15, blood pressure 145/68, and O2 saturation 100% on room air. She was started on normal saline and admitted for rectal bleeding and possible GI bleed. Her hemoglobin dropped and she was transfused with one unit of packed red blood cells. Gastroenterology was consulted. Her aspirin was placed on hold. She underwent a colonoscopy which revealed a large ulcerated mass in the ileocecal area. She also had a second mass in the sigmoid colon. Both masses were biopsied and [facility] were consulted for resection. Cardiology was consulted for preoperative clearance. Again, the patient denies chest pain or shortness of breath. There is no evidence of congestive heart failure on exam. EKG was obtained and revealed normal sinus rhythm with some T wave inversion in the anterolateral leads, but no acute changes. PAST MEDICAL HISTORY 1. Previous admission to [facility] in 08/2013 for syncope, likely from hypotension and weight loss. Unit #: [id number] #: [id number] Patient: NOELLE BHATT 2. Two-dimensional echocardiogram 09/06/2013 revealed mild LVH. Ejection fraction greater than 55%. Mild to moderate left atrial enlargement. Mild to moderate mitral annular calcification. Mild mitral and tricuspid regurgitation. Right ventricular systolic pressure 40-50 mmHg. Aortic valve sclerosis but no stenosis. 3. 24-hour Holter monitor 09/05/2013 revealed rare PVC and PAC. Six beats of atrial tachycardia. 4. Coronary artery disease, status post cardiac catheterization on 05/25/2012 revealed left main and right coronary artery normal. First diagonal 90%. Mid LAD 99%. Distal LAD 70%. Posterior marginal 50%. Ejection fraction 55%. Status post PCI and stent in the mid LAD. 5. Lexiscan Cardiolite stress test 01/13/2013 revealed no ischemia. Ejection fraction 60%. 6. Hypertension. 7. Hyperlipidemia. 8. Diabetes mellitus type 2. 9. Hypothyroidism. 10. Chronic thrombocytopenia. PAST SURGICAL HISTORY 1. Cardiac catheterization with PCI and stent 2. Hysterectomy. SOCIAL HISTORY The patient lives in a private residence. She is a lifetime nonsmoker. There are no reports of alcohol or illicit drug use. FAMILY HISTORY Noncontributory for coronary artery disease. ALLERGIES No known drug allergies. HOME MEDICATIONS 1. Amlodipine 10 mg p.o. at nighttime. 2. Coreg 6.25 mg p.o. b.i.d. 3. Synthroid 137 mcg p.o. daily. 4. Zestril 40 mg p.o. b.i.d. 5. Chlorthalidone 50 mg p.o. daily. 6. Glucophage 500 mg p.o. b.i.d. REVIEW OF SYSTEMS Ten point review of systems negative except for details noted above in history of present illness. PHYSICAL EXAMINATION GENERAL: This is a 70-year-old white female in no acute distress. VITALS: Temperature 98.5, pulse 78, blood pressure 100/58. SKIN: Warm and dry. NECK: Supple. No jugular venous distension. No hepatojugular reflux. No carotid upstrokes. No carotid bruits auscultated. HEART: S1, S2. Regular rate and rhythm. No murmurs, rubs or gallops. LUNGS: Bilateral breath sounds have good air entry throughout all lung tee. Respirations even and unlabored. No rales, rhonchi or wheezes. ABDOMEN: Soft, nontender, nondistended. Positive bowel sounds auscultated time four quadrants. No ascites noted. EXTREMITIES: The bilateral extremities have no pretibial or pitting Unit #: [id number] #: [id number] Patient: NOELLE BHATT M edema. Dorsalis pedis and posterior tibial pulses 2+. Capillary refill less than three seconds. DIAGNOSTIC STUDIES IMAGING: CT of the abdomen and pelvis on 06/21/2016 revealed long segment of thickening and inflammation of the descending colon and sigmoid colon, indicative of colitis. LABORATORY: White blood cell count 7.4, hemoglobin 8.5, hematocrit 26.4, platelets 257, sodium 135, potassium 3.7, chloride 101, CO2 26, BUN 7, creatinine 0.8, glucose 134, AST 9, ALT 9, alkaline phosphatase 34, lipase 15, PEA 6.3. CARDIOVASCULAR: Electrocardiogram reveals sinus rhythm with T wave inversion in the anterolateral leads. QTC 398 msec. ASSESSMENT 1. Anemia. 2. Bloody diarrhea with recent colitis. 3. Status post colonoscopy with sigmoid colon mass and ileocecal mass. Biopsy pending. 4. Coronary artery disease with a history of PCI and stent in the LAD in 05/2012. 5. Borderline hypotension. 6. Hyperlipidemia. 7. Diabetes mellitus type 2. 8. Hypothyroidism. 9. Ejection fraction greater than 55%. 10. History of syncope secondary to weight loss and hypotension. PLAN 1. The patient presented to the hospital with complaints of diarrhea. She was admitted for rectal bleeding and gastroenterology was consulted. 2. She was found to have a sigmoid and ileocecal mass and is scheduled for a resection. 3. Cardiology was consulted for preoperative clearance. 4. There are no complaints of chest pain or evidence of congestive heart failure on exam. 5. EKG revealed some inversion in the anterolateral leads. 6. The patient's amlodipine and chlorthalidone will be discontinued. Her lisinopril will be decreased as well as there is evidence of borderline hypotension. 7. She is okay to undergo surgery at acceptable risk from a cardiovascular standpoint. Dictated by... Anay Pa APRN for Vinny Cohn TD: 07/10/2016 15:33 JOB #: [id number] Unit #: [id number] #: [id number] Patient: NOELLE BHATT CONSULTATION REPORT Page 1 of 1 X X CONSULTATION REPORT
[2016-07-05 15:37] LABS: BASOPHIL% 0.5 % (0-2.5); EOSINOPHIL# 0.1 X10e3 (0-0.7); EOSINOPHIL% 1.6 % (0.0-7.0); HEMATOCRIT 27.3 % (35.0-45.0); HEMOGLOBIN 8.6 gm/dL (12.0-16.0); LYMPHOCYTE# 1.8 X10e3 (1.0-3.5); MEAN CELL VOLUME 78.4 FL (83-96); MEAN CORPUSCULAR HEMOGLOBIN 24.8 PG (28-34); MEAN CORPUSCULAR HGB CONC 31.7 g/dL (30-36); MEAN PLATELET VOLUME 8.6 FL (6.5-11.5); MONOCYTE# 0.5 X10e3 (0-1.0); MONOCYTE% 7.6 % (3.0-12.0); NEUTROPHIL# 4.2 X10e3 (1.5-7.1); NEUTROPHIL% 63.3 % (40-75); PLATELET COUNT 289 X10e3 (140-420); RED BLOOD COUNT 3.48 X10e (3.90-5.30); RED CELL DISTRIBUTION WIDTH 14.7 % (11.0-15.5); WHITE BLOOD COUNT 6.6 X10e3 (4.0-10.5)
[2016-07-05 15:39] LABS: DIFF IND NO
[2016-07-05 15:54] LABS: PARTIAL THROMBOPLASTIN TIME 25.8 SECONDS (23.5-31.3); PROTHROMBIN TIME (PATIENT) 10.7 SECONDS (9.6-11.5)
[2016-07-05 16:06] LABS: ALBUMIN SERUM 3.5 g/dL (3.5-5.0); ALKALINE PHOSPHATASE 44 U/L (32-92); ALT (SGPT) 10 U/L (10-40); AST (SGOT) 12 U/L (10-42); BILIRUBIN, DIRECT <0.1 mg/dL (0.0-0.2); BILIRUBIN,INDIRECT 0.4 mg/dL (0.0-0.9); BILIRUBIN,TOTAL 0.5 mg/dL (0.2-2.0); BLOOD UREA NITROGEN 24 mg/dL (9-23); CALCIUM SERUM 9.3 mg/dL (8.4-10.2); CARBON DIOXIDE 25 mmol/L (22-31); CHLORIDE 100 mmol/L (100-111); GLOM FILT RATE Estimated 57.9 mL/min (>60); GLUCOSE FASTING 168 mg/dL (70-110); LIPASE 15 U/L (22-51); POTASSIUM 3.7 mmol/L (3.5-5.1); PROTEIN TOTAL SERUM 7.6 g/dL (6.0-8.3); SODIUM 135 mmol/L (135-145)
[2016-07-05] MEDS ORDERED: AMLODIPINE BESY10 MG PO (16:50)
[2016-07-05] MEDS ORDERED: SYNTHROID137 MCG PO (16:51)
[2016-07-05] MEDS ORDERED: COREG6.25 M1 PO (16:51)
[2016-07-05] MEDS ORDERED: ZESTRIL40 MG PO (16:52)
[2016-07-05] MEDS ORDERED: CHLORTHALIDONE50 M1 PO (16:53)
[2016-07-05] MEDS ORDERED: GLUCOPHAGE500 MG PO (16:53)
[2016-07-06 06:27] LABS: HEMATOCRIT 28.2 % (35.0-45.0); HEMOGLOBIN 9.1 gm/dL (12.0-16.0); MEAN CELL VOLUME 78.6 FL (83-96); MEAN CORPUSCULAR HEMOGLOBIN 25.3 PG (28-34); MEAN CORPUSCULAR HGB CONC 32.2 g/dL (30-36); MEAN PLATELET VOLUME 8.3 FL (6.5-11.5); RED BLOOD COUNT 3.59 X10e (3.90-5.30); RED CELL DISTRIBUTION WIDTH 15.1 % (11.0-15.5); WHITE BLOOD COUNT 6.8 X10e3 (4.0-10.5)
[2016-07-06 07:19] LABS: CALCIUM SERUM 9.2 mg/dL (8.4-10.2); CREATININE SERUM 0.8 mg/dL (0.6-1.4); GLOM FILT RATE Estimated 75.8 mL/min (>60)
[2016-07-07 06:00] LABS: HEMATOCRIT 25.8 % (35.0-45.0); HEMOGLOBIN 8.4 gm/dL (12.0-16.0); MEAN CELL VOLUME 78.6 FL (83-96); MEAN CORPUSCULAR HEMOGLOBIN 25.5 PG (28-34); MEAN CORPUSCULAR HGB CONC 32.4 g/dL (30-36); MEAN PLATELET VOLUME 8.4 FL (6.5-11.5); RED BLOOD COUNT 3.28 X10e (3.90-5.30); RED CELL DISTRIBUTION WIDTH 15.3 % (11.0-15.5); WHITE BLOOD COUNT 5.5 X10e3 (4.0-10.5)
[2016-07-07 06:58] LABS: ALBUMIN SERUM 2.8 g/dL (3.5-5.0); BILIRUBIN,TOTAL 0.4 mg/dL (0.2-2.0); CREATININE SERUM 0.7 mg/dL (0.6-1.4); POTASSIUM 3.9 mmol/L (3.5-5.1); PROTEIN TOTAL SERUM 5.8 g/dL (6.0-8.3)
[2016-07-08 05:13] LABS: HEMATOCRIT 27.3 % (35.0-45.0); HEMOGLOBIN 8.7 gm/dL (12.0-16.0); MEAN CELL VOLUME 79.4 FL (83-96); MEAN CORPUSCULAR HEMOGLOBIN 25.4 PG (28-34); MEAN PLATELET VOLUME 8.7 FL (6.5-11.5); RED BLOOD COUNT 3.44 X10e (3.90-5.30); RED CELL DISTRIBUTION WIDTH 15.1 % (11.0-15.5); WHITE BLOOD COUNT 4.8 X10e3 (4.0-10.5)
[2016-07-08 06:37] LABS: ALBUMIN SERUM 3.2 g/dL (3.5-5.0); BILIRUBIN,TOTAL 0.7 mg/dL (0.2-2.0); BUN/CREATININE RATIO 12.5; CALCIUM SERUM 9.1 mg/dL (8.4-10.2); CREATININE SERUM 0.8 mg/dL (0.6-1.4); GLOM FILT RATE Estimated 75.8 mL/min (>60); POTASSIUM 3.7 mmol/L (3.5-5.1); PROTEIN TOTAL SERUM 6.6 g/dL (6.0-8.3)
[2016-07-09 06:22] LABS: HEMATOCRIT 26.4 % (35.0-45.0); HEMOGLOBIN 8.5 gm/dL (12.0-16.0); MEAN CELL VOLUME 78.4 FL (83-96); MEAN CORPUSCULAR HEMOGLOBIN 25.4 PG (28-34); MEAN CORPUSCULAR HGB CONC 32.4 g/dL (30-36); MEAN PLATELET VOLUME 8.4 FL (6.5-11.5); RED BLOOD COUNT 3.37 X10e (3.90-5.30); RED CELL DISTRIBUTION WIDTH 15.5 % (11.0-15.5)
[2016-07-09 06:24] LABS: WHITE BLOOD COUNT 7.4 X10e3 (4.0-10.5)
[2016-07-09 07:03] LABS: ALBUMIN SERUM 2.9 g/dL (3.5-5.0); BILIRUBIN,TOTAL 0.6 mg/dL (0.2-2.0); BUN/CREATININE RATIO 8.75; CALCIUM SERUM 8.8 mg/dL (8.4-10.2); CREATININE SERUM 0.8 mg/dL (0.6-1.4); GLOM FILT RATE Estimated 75.8 mL/min (>60); POTASSIUM 3.7 mmol/L (3.5-5.1); PROTEIN TOTAL SERUM 6.3 g/dL (6.0-8.3)
[2016-07-10 05:30] LABS: HEMATOCRIT 26.2 % (35.0-45.0); HEMOGLOBIN 8.3 gm/dL (12.0-16.0); MEAN CELL VOLUME 79.3 FL (83-96); MEAN CORPUSCULAR HEMOGLOBIN 25.1 PG (28-34); MEAN CORPUSCULAR HGB CONC 31.7 g/dL (30-36); MEAN PLATELET VOLUME 8.6 FL (6.5-11.5); RED BLOOD COUNT 3.3 X10e (3.90-5.30); RED CELL DISTRIBUTION WIDTH 15.6 % (11.0-15.5); WHITE BLOOD COUNT 4.9 X10e3 (4.0-10.5)
[2016-07-10 06:13] LABS: CALCIUM SERUM 8.5 mg/dL (8.4-10.2); CREATININE SERUM 0.8 mg/dL (0.6-1.4); GLOM FILT RATE Estimated 75.8 mL/min (>60); MAGNESIUM 1.6 mg/dL (1.6-3.0); POTASSIUM 3.2 mmol/L (3.5-5.1)
[2016-07-11 05:20] LABS: HEMATOCRIT 30.3 % (35.0-45.0); HEMOGLOBIN 9.6 gm/dL (12.0-16.0); MEAN CELL VOLUME 81.1 FL (83-96); MEAN CORPUSCULAR HEMOGLOBIN 25.6 PG (28-34); MEAN CORPUSCULAR HGB CONC 31.6 g/dL (30-36); MEAN PLATELET VOLUME 8.6 FL (6.5-11.5); RED BLOOD COUNT 3.74 X10e (3.90-5.30); RED CELL DISTRIBUTION WIDTH 15.8 % (11.0-15.5); WHITE BLOOD COUNT 4.6 X10e3 (4.0-10.5)
[2016-07-11 05:46] LABS: BUN/CREATININE RATIO 8.75; CALCIUM SERUM 8.5 mg/dL (8.4-10.2); CREATININE SERUM 0.8 mg/dL (0.6-1.4); GLOM FILT RATE Estimated 75.8 mL/min (>60); POTASSIUM 4.4 mmol/L (3.5-5.1)
[2016-07-11 18:23] LABS: HEMATOCRIT 33.9 % (35.0-45.0); HEMOGLOBIN 10.7 gm/dL (12.0-16.0)
[2016-07-12 01:29] LABS: HEMATOCRIT 34.2 % (35.0-45.0); HEMOGLOBIN 10.9 gm/dL (12.0-16.0)
[2016-07-12 03:16] LABS: BASOPHIL% 0.1 % (0-2.5); HEMATOCRIT 33.1 % (35.0-45.0); HEMOGLOBIN 10.6 gm/dL (12.0-16.0); LYMPHOCYTE# 0.7 X10e3 (1.0-3.5); LYMPHOCYTE% 7.3 % (17.0-45.0); MEAN CELL VOLUME 80.8 FL (83-96); MEAN CORPUSCULAR HEMOGLOBIN 25.8 PG (28-34); MEAN PLATELET VOLUME 8.5 FL (6.5-11.5); MONOCYTE# 0.5 X10e3 (0-1.0); MONOCYTE% 5.7 % (3.0-12.0); NEUTROPHIL% 86.9 % (40-75); PLATELET COUNT 270 X10e3 (140-420); RED CELL DISTRIBUTION WIDTH 15.8 % (11.0-15.5)
[2016-07-12 03:18] LABS: DIFF IND NO; WHITE BLOOD COUNT 9.2 X10e3 (4.0-10.5)
[2016-07-12 03:49] LABS: ALBUMIN SERUM 2.7 g/dL (3.5-5.0); BILIRUBIN,TOTAL 0.7 mg/dL (0.2-2.0); BUN/CREATININE RATIO 6.66; CALCIUM SERUM 7.5 mg/dL (8.4-10.2); CREATININE SERUM 0.9 mg/dL (0.6-1.4); GLOM FILT RATE Estimated 65.7 mL/min (>60); POTASSIUM 3.8 mmol/L (3.5-5.1)
[2016-07-13 04:29] LABS: BASOPHIL% 0.5 % (0-2.5); EOSINOPHIL% 0.2 % (0.0-7.0); HEMATOCRIT 29.3 % (35.0-45.0); HEMOGLOBIN 9.4 gm/dL (12.0-16.0); LYMPHOCYTE# 1.6 X10e3 (1.0-3.5); LYMPHOCYTE% 19.5 % (17.0-45.0); MEAN CELL VOLUME 79.9 FL (83-96); MEAN CORPUSCULAR HEMOGLOBIN 25.5 PG (28-34); MEAN PLATELET VOLUME 8.1 FL (6.5-11.5); MONOCYTE# 0.8 X10e3 (0-1.0); MONOCYTE% 9.1 % (3.0-12.0); NEUTROPHIL# 5.9 X10e3 (1.5-7.1); NEUTROPHIL% 70.7 % (40-75); PLATELET COUNT 267 X10e3 (140-420); RED BLOOD COUNT 3.67 X10e (3.90-5.30); RED CELL DISTRIBUTION WIDTH 16.3 % (11.0-15.5); WHITE BLOOD COUNT 8.4 X10e3 (4.0-10.5)
[2016-07-13 04:37] LABS: DIFF IND NO
[2016-07-13 06:23] LABS: ALBUMIN SERUM 2.4 g/dL (3.5-5.0); BILIRUBIN,TOTAL 0.3 mg/dL (0.2-2.0); BUN/CREATININE RATIO 6.25; CALCIUM SERUM 8.2 mg/dL (8.4-10.2); CREATININE SERUM 0.8 mg/dL (0.6-1.4); GLOM FILT RATE Estimated 75.8 mL/min (>60); POTASSIUM 4.1 mmol/L (3.5-5.1); PROTEIN TOTAL SERUM 5.1 g/dL (6.0-8.3)
[2016-07-14 03:50] LABS: BASOPHIL% 0.5 % (0-2.5); DIFF IND NO; EOSINOPHIL% 0.7 % (0.0-7.0); HEMATOCRIT 26.6 % (35.0-45.0); HEMOGLOBIN 8.6 gm/dL (12.0-16.0); LYMPHOCYTE# 1.5 X10e3 (1.0-3.5); LYMPHOCYTE% 22.4 % (17.0-45.0); MEAN CELL VOLUME 80.7 FL (83-96); MEAN CORPUSCULAR HEMOGLOBIN 26.1 PG (28-34); MEAN CORPUSCULAR HGB CONC 32.3 g/dL (30-36); MEAN PLATELET VOLUME 8.2 FL (6.5-11.5); MONOCYTE# 0.7 X10e3 (0-1.0); MONOCYTE% 10.5 % (3.0-12.0); NEUTROPHIL# 4.4 X10e3 (1.5-7.1); NEUTROPHIL% 65.9 % (40-75); PLATELET COUNT 215 X10e3 (140-420); RED BLOOD COUNT 3.29 X10e (3.90-5.30); RED CELL DISTRIBUTION WIDTH 16.2 % (11.0-15.5); WHITE BLOOD COUNT 6.6 X10e3 (4.0-10.5)
[2016-07-14 04:08] LABS: BLOOD UREA NITROGEN <5 mg/dL (9-23); BUN/CREATININE RATIO 6.25; CALCIUM SERUM 7.9 mg/dL (8.4-10.2); CARBON DIOXIDE 26 mmol/L (22-31); CHLORIDE 99 mmol/L (100-111); CREATININE SERUM 0.8 mg/dL (0.6-1.4); GLOM FILT RATE Estimated 75.8 mL/min (>60); GLUCOSE FASTING 162 mg/dL (70-110); POTASSIUM 3.7 mmol/L (3.5-5.1); SODIUM 131 mmol/L (135-145)
[2016-07-15 02:50] LABS: BASOPHIL% 0.4 % (0-2.5); DIFF IND NO; EOSINOPHIL# 0.1 X10e3 (0-0.7); EOSINOPHIL% 1.2 % (0.0-7.0); HEMATOCRIT 29.6 % (35.0-45.0); HEMOGLOBIN 9.3 gm/dL (12.0-16.0); LYMPHOCYTE% 16.6 % (17.0-45.0); MEAN CELL VOLUME 81.1 FL (83-96); MEAN CORPUSCULAR HEMOGLOBIN 25.6 PG (28-34); MEAN CORPUSCULAR HGB CONC 31.6 g/dL (30-36); MEAN PLATELET VOLUME 8.6 FL (6.5-11.5); MONOCYTE# 0.7 X10e3 (0-1.0); NEUTROPHIL# 4.3 X10e3 (1.5-7.1); NEUTROPHIL% 70.8 % (40-75); PLATELET COUNT 221 X10e3 (140-420); RED BLOOD COUNT 3.65 X10e (3.90-5.30); RED CELL DISTRIBUTION WIDTH 16.3 % (11.0-15.5); WHITE BLOOD COUNT 6.1 X10e3 (4.0-10.5)
[2016-07-16 03:06] LABS: HEMATOCRIT 28.3 % (35.0-45.0); MEAN CELL VOLUME 80.1 FL (83-96); MEAN CORPUSCULAR HEMOGLOBIN 25.6 PG (28-34); MEAN CORPUSCULAR HGB CONC 31.9 g/dL (30-36); MEAN PLATELET VOLUME 8.5 FL (6.5-11.5); RED BLOOD COUNT 3.54 X10e (3.90-5.30); RED CELL DISTRIBUTION WIDTH 16.5 % (11.0-15.5)
[2016-07-16 03:31] LABS: ALBUMIN SERUM 2.4 g/dL (3.5-5.0); ALKALINE PHOSPHATASE 29 U/L (32-92); ALT (SGPT) 10 U/L (10-40); AST (SGOT) 14 U/L (10-42); BILIRUBIN,TOTAL 0.5 mg/dL (0.2-2.0); CALCIUM SERUM 8.5 mg/dL (8.4-10.2); CARBON DIOXIDE 28 mmol/L (22-31); CHLORIDE 97 mmol/L (100-111); CREATININE SERUM 0.8 mg/dL (0.6-1.4); GLOM FILT RATE Estimated 75.8 mL/min (>60); GLUCOSE FASTING 151 mg/dL (70-110); MAGNESIUM 1.5 mg/dL (1.6-3.0); POTASSIUM 3.2 mmol/L (3.5-5.1); PROTEIN TOTAL SERUM 5.5 g/dL (6.0-8.3); SODIUM 133 mmol/L (135-145)
[2016-07-16 03:32] LABS: BLOOD UREA NITROGEN <5 mg/dL (9-23); BUN/CREATININE RATIO 6.25
[2016-07-16] MEDS ORDERED: LORTAB 5-325 M1 EACH PO (14:20)
[2016-07-16] MEDS ORDERED: BENTYL20 MG PO (14:21)
[2016-07-16] MEDS ORDERED: POTASSIUM CHLO20 ME1 PO (14:23)
[2016-07-16] MEDS ORDERED: LOPERAMIDE HCL2 M1 PO (14:24)
[2016-07-16] MEDS ORDERED: ZOFRAN PO (14:24)
[2016-07-16] MEDS ORDERED: LIPITOR20 MG PO (14:25)
[2016-09-03] MEDS ORDERED: LEVOTHYROXINE150 MCG PO (14:10)
[2016-09-03] MEDS ORDERED: AMLODIPINE BESY10 MG PO (14:10)
[2016-09-03] MEDS ORDERED: FIBER GUMMIES1 EACH PO (14:11)
== END 2016-07-16 17:55 | disposition home health service (06) | DRG 330 ==
LOC: CED 15:28 → CEDOF 15:55 → C5B 18:43 → C4B 07-11 19:00
PROVIDERS: Emergency Medicine; Internal Medicine; Internal Medicine Cardiovascular Disease; Internal Medicine Gastroenterology; Surgery
PROC: 30233N1 Transfusion of Nonautologous Red Blood Cells into Peripheral Vein, Percutaneous Approach (ICD-10-PCS; 2016-07-05)
PROC: 0DBC8ZX Excision of Ileocecal Valve, Via Natural or Artificial Opening Endoscopic, Diagnostic (ICD-10-PCS; principal; 2016-07-06)
PROC: 0DBN8ZX Excision of Sigmoid Colon, Via Natural or Artificial Opening Endoscopic, Diagnostic (ICD-10-PCS; 2016-07-06)
PROC: 0DBN8ZZ Excision of Sigmoid Colon, Via Natural or Artificial Opening Endoscopic (ICD-10-PCS; 2016-07-06)
PROC: 0DTG0ZZ Resection of Left Large Intestine, Open Approach (ICD-10-PCS; 2016-07-11)
PROC: 07BC0ZX Excision of Pelvis Lymphatic, Open Approach, Diagnostic (ICD-10-PCS; 2016-07-11)
DX: C18.7 Malignant neoplasm of sigmoid colon (principal); C18.0 Malignant neoplasm of cecum; E87.2 Acidosis; D69.6 Thrombocytopenia, unspecified; I95.9 Hypotension, unspecified; E11.65 Type 2 diabetes mellitus with hyperglycemia; E44.1 Mild protein-calorie malnutrition; D62 Acute posthemorrhagic anemia; E87.1 Hypo-osmolality and hyponatremia; I25.10 Atherosclerotic heart disease of native coronary artery without angina pectoris; I10 Essential (primary) hypertension; E78.5 Hyperlipidemia, unspecified; E03.9 Hypothyroidism, unspecified; I08.1 Rheumatic disorders of both mitral and tricuspid valves; Z90.710 Acquired absence of both cervix and uterus; Z79.84 Long term (current) use of oral hypoglycemic drugs; D64.9 Anemia, unspecified; E87.6 Hypokalemia; A08.8 Other specified intestinal infections; E83.42 Hypomagnesemia; Z68.23 Body mass index [BMI] 23.0-23.9, adult; K52.9 Noninfective gastroenteritis and colitis, unspecified
CPT/HCPCS: 36415; 80048; 80053; 80076; 82378; 82947; 83605; 83690; 83735; 84100; 85014; 85018; 85025; 85027; 85610; 85730; 86850; 86900; 86901; 86923; 87045; 87427; 87493; 87899; 88305; 88309; 88341; 88342; 93005; 96360; 99285; J0330; J1170; J1650; J1815; J2250; J2270; J2405; J2543; J3010; J3475; J3490; P9016

== ENCOUNTER → 2016-09-03 | Outpatient (CLI) | payer MEDICARE, OTHER ==
[~2016-09-03] MED LIST changes: +B-121000 MC1 PO; +BENTYL20 MG PO; +CHLORTHALIDONE50 M1 PO; +COREG6.25 M1 PO; +FERROUS GLUCON324 M2 PO; +FIBER GUMMIES1 EACH PO; +LEVOTHYROXINE150 MCG PO; +LIPITOR20 MG PO; +LOMOTIL WHITE2.5 M1 PO; +LOPERAMIDE HCL2 M1 PO; +LORTAB 5-325 M1 EACH PO; +PHENERGAN25 M1 PO; +POTASSIUM CHLO20 ME1 PO; +SYNTHROID137 MCG PO; +ZESTRIL40 MG PO; +ZOFRAN PO
[2016-09-03 14:27] LABS: HEMATOCRIT 32.5 % (35.0-45.0); MEAN CELL VOLUME 74.3 FL (83-96); MEAN CORPUSCULAR HEMOGLOBIN 22.8 PG (28-34); MEAN CORPUSCULAR HGB CONC 30.7 g/dL (30-36); MEAN PLATELET VOLUME 8.9 FL (6.5-11.5); RED BLOOD COUNT 4.37 X10e (3.90-5.30); RED CELL DISTRIBUTION WIDTH 17.1 % (11.0-15.5); WHITE BLOOD COUNT 3.9 X10e3 (4.0-10.5)
[2016-09-03 14:43] LABS: BUN/CREATININE RATIO 31.66; CALCIUM SERUM 9.3 mg/dL (8.4-10.2); CREATININE SERUM 0.6 mg/dL (0.6-1.4)
[2016-09-03 14:44] LABS: INR 1.1; PROTHROMBIN TIME (PATIENT) 11.4 SECONDS (10.0-11.7)
== END | disposition home or self-care (01) ==
LOC: CAMB 13:33
PROVIDERS: Specialist
DX: Z01.812 Encounter for preprocedural laboratory examination (principal)
CPT/HCPCS: 36415; 80048; 85027; 85610; 85730

== ENCOUNTER → 2016-09-10 | Day surgery (SDC) | payer MEDICARE, OTHER ==
--- NOTE | ~2016-09-10 | OR ---
Unit #: [id number] #: [id number] Patient: NOELLE BHATT [id number] [facility] [address]. [place], [place] [address] [id number] O MR#: [id number] NAME: NOELLE BHATT ROOM: Date of Procedure: 09/10/2016 Admission Date: 09/10/2016 Surgeon: Luis Melgoza M.D. : 1945 Attending Physician: Luis Melgoza M.D. Primary Care Physician: Dori Dillard M.D. OPERATIVE REPORT PREOPERATIVE DIAGNOSIS Metastatic colon cancer. POSTOPERATIVE DIAGNOSIS Metastatic colon cancer. PROCEDURE PERFORMED Right subclavian vein MediPort placement under fluoroscopy. ANESTHESIA Monitored anesthesia with local anesthetic. ESTIMATED BLOOD LOSS Less than 20 mL. INDICATIONS FOR PROCEDURE A 71-year-old female, who has had a recent subtotal colectomy for synchronous colon cancers is due for chemotherapy and a MediPort has been requested. DESCRIPTION OF PROCEDURE The patient was admitted to [facility], positively identified, transported to the operating room, and after appropriate monitoring and positioning, she received IV antibiotics per SCIP protocol, was positioned in Trendelenburg position with both arms tucked and after being prepped and draped in usual sterile fashion, she was sedated by the anesthesiologist. Local anesthetic was infiltrated in the skin and soft tissue. An introducer needle was passed in the subclavian vein. Backflow was inadequate, so the needle was removed and a second pass entered the vein with excellent back flow, so the guidewire was passed under fluoroscopic control in the superior vena cava. I then made a skin incision and created a subdermal pocket and brought the guidewire into the incision. Dilator and sheath were easily passed over the guidewire in the subclavian vein and then the Silastic catheter was placed in the superior vena cava under fluoroscopic control. The catheter was attached using the locking device to the MediPort. The MediPort was placed in the subdermal pocket. It was accessed and easily aspirated and flushed without leakage. The port was then secured with 3-0 silk suture and the skin was closed with 4-0 Monocryl interrupted suture and Dermabond skin adhesive. Sponges and needle counts were correct x3. The patient tolerated the procedure well and was transported to recovery in stable condition. A portable chest x-ray in recovery room is pending to confirm placement and rule out Unit #: [id number] #: [id number] Patient: NOELLE BHATT pneumothorax. Dictated by... Vinny Farias/adarsh TD: 09/11/2016 04:30 JOB #: [id number] OPERATIVE REPORT Page 1 of 1 X Luis Melgoza MD X PROCEDURE OPERATIVE NOTE
--- NOTE | ~2016-09-10 | CR71 ---
[facility] A Service of [facility] & [facility] RADIOLOGY TEXT RESULTS PATIENT: NOELLE BHATT LOCATION: [facility] : [birth year] UNIT #: [id number] AGE: [address]: Luis Melgoza MD SEX: F ORDER DR: [id number] [facility] [address] [place], [place] [address] [id number] O MR#: [id number] Acc #: [id number] NAME: NOELLE BHATT : 1945 SEX: F STUDY DATE/TIME: 09/10/2016 14:36 UNIT: [facility] ROOM: STUDY DESCRIPTION: CR Chest Single View Attending Physician: Luis Melgoza M.D. Ordering Physician: Luis Melgoza M.D. Primary Care Physician: Dori Dillard M.D. MEDICAL IMAGING REPORT This report is preliminary unless electronic signature is present EXAM Portable chest HISTORY MediPort placement today. COMPARISON STUDIES August 03, 2013. FINDINGS Right subclavian MediPort extends into the superior vena cava. Cardiomediastinal silhouette is unchanged when compared to prior examination. No pneumothorax, pleural effusion or acute infiltrate is seen. Dictated by... Catherine Melendez M.D. THIS IS AN ELECTRONICALLY VERIFIED REPORT Catherine Melendez M.D. at 09/12/2016 5:15 PM AFF/pcl TD: 09/10/2016 21:38 JOB #: [id number] MEDICAL IMAGING REPORT Page 1 of 1 COPY
[2016-09-10 11:58] LABS: BASOPHIL% 0.5 % (0-2.5); EOSINOPHIL# 0.1 X10e3 (0-0.7); EOSINOPHIL% 1.7 % (0.0-7.0); HEMATOCRIT 30.9 % (35.0-45.0); HEMOGLOBIN 9.6 gm/dL (12.0-16.0); LYMPHOCYTE# 1.3 X10e3 (1.0-3.5); LYMPHOCYTE% 33.3 % (17.0-45.0); MEAN CELL VOLUME 73.9 FL (83-96); MEAN CORPUSCULAR HEMOGLOBIN 22.8 PG (28-34); MEAN CORPUSCULAR HGB CONC 30.9 g/dL (30-36); MEAN PLATELET VOLUME 9.4 FL (6.5-11.5); MONOCYTE# 0.4 X10e3 (0-1.0); MONOCYTE% 9.4 % (3.0-12.0); NEUTROPHIL# 2.2 X10e3 (1.5-7.1); NEUTROPHIL% 55.1 % (40-75); PLATELET COUNT 162 X10e3 (140-420); RED BLOOD COUNT 4.18 X10e (3.90-5.30)
[2016-09-10 12:06] LABS: DIFF IND NO
[2016-09-10 12:15] LABS: BUN/CREATININE RATIO 21.25; CALCIUM SERUM 9.4 mg/dL (8.4-10.2); CREATININE SERUM 0.8 mg/dL (0.6-1.4); GLOM FILT RATE Estimated 75.3 mL/min (>60); POTASSIUM 4.2 mmol/L (3.5-5.1)
== END | disposition home or self-care (01) ==
LOC: CSUR 10:32
PROVIDERS: Specialist
PROC: 05H533Z Insertion of Infusion Device into Right Subclavian Vein, Percutaneous Approach (ICD-10-PCS; principal; 2016-09-10 12:30)
DX: C18.0 Malignant neoplasm of cecum (principal); C18.7 Malignant neoplasm of sigmoid colon; Z45.2 Encounter for adjustment and management of vascular access device; E03.9 Hypothyroidism, unspecified; I10 Essential (primary) hypertension; I25.10 Atherosclerotic heart disease of native coronary artery without angina pectoris; Z95.5 Presence of coronary angioplasty implant and graft; E11.9 Type 2 diabetes mellitus without complications; Z79.84 Long term (current) use of oral hypoglycemic drugs; Z79.899 Other long term (current) drug therapy; Z79.82 Long term (current) use of aspirin; R35.0 Frequency of micturition; D64.9 Anemia, unspecified; Z87.01 Personal history of pneumonia (recurrent); Z90.710 Acquired absence of both cervix and uterus; Z98.890 Other specified postprocedural states
CPT/HCPCS: 71010; 76000; 77001; 80048; 82947; 85025; C1788; J0690; J1644; J2250; J3010

== ENCOUNTER 2016-09-21 23:36 | Inpatient (IN) | payer MEDICARE, OTHER ==
--- NOTE | ~2016-09-21 | CR150 ---
[facility] A Service of [facility] & [facility] RADIOLOGY TEXT RESULTS PATIENT: NOELLE BHATT LOCATION: [facility] : [birth year] UNIT #: [id number] AGE: [address]: Carla Varela MD SEX: F ORDER DR: [id number] [facility] [address] [place], [place] [address] [id number] I MR#: [id number] Acc #: [id number] NAME: NOELLE BHATT. : 1945 SEX: F STUDY DATE/TIME: 09/22/2016 1:16 UNIT: [facility] ROOM: [facility] STUDY DESCRIPTION: CR Hip Min 2 Views Lt Attending Physician: Carla Varela M.D. Ordering Physician: Lalo Kline M.D. Primary Care Physician: Dori Dillard M.D. MEDICAL IMAGING REPORT This report is preliminary unless electronic signature is present EXAM Left hip INDICATION Left hip pain after fall today. FINDINGS An AP view the pelvis and a lateral view of the left hip were obtained. No fracture is visible. The bones are normal. IMPRESSION Normal left hip and AP pelvis. Dictated by... Surya Peterson M.D. THIS IS AN ELECTRONICALLY VERIFIED REPORT Surya Peterson M.D. at 09/23/2016 5:00 AM ANABELLE/clark TD: 09/23/2016 02:56 JOB #: [id number] MEDICAL IMAGING REPORT Page 1 of 1 COPY
--- NOTE | ~2016-09-21 | HP ---
Unit #: [id number] #: [id number] Patient: NOELLE AGARWAL [id number] [id number] [facility]. [place], [place] [address] [id number] I MR#: [id number] NAME: NOELLE AGARWAL. ROOM: 242 Age: 71 Sex: F Admission Date: 09/22/2016 : 1945 Attending Physician: Carla Varela M.D. Primary Care Physician: Dori Dillard M.D. HISTORY AND PHYSICAL CHIEF COMPLAINT Nausea and vomiting HISTORY OF PRESENT ILLNESS Ms. Agarwal is a very nice 71-year-old female with a history of colon cancer status post resection and recent initiation of chemotherapy on September 16, who presents to the emergency room for above. The patient states she began feeling ill yesterday and developed intractable nausea. She did have emesis x1, which was nonbloody. She denies any fever. She denies any sick contacts. She denies any abdominal pain. She has chronic diarrhea following her colon resection, but she states this has been worse the last few days as well. She denies any blood in her stool. She presented to this emergency room last evening tachycardic with a heart rate of 110. But otherwise, vital signs were stable. She was given a liter of normal saline, phenergan on two separate occasions and ultimately 8 mg of Zofran. She is still feeling mildly nauseas, but has not had any more emesis. She has been able to keep down a few sips of water. Lab work reveals a white blood cell count of 2.0 with only 27% neutrophils. She is being admitted to further control her nausea and vomiting. Please note, the patient did have some associated weakness yesterday at home after vomiting and felt her left leg give out and she did fall onto her left hip. She states now her left hip is only sore and she has been up walking to the bathroom. She still feels as if her left leg is somewhat weak. PAST MEDICAL HISTORY 1. Colon cancer diagnosed in June 2016. Again patient just underwent her first chemotherapy on September 16, 2016. She does not know her chemotherapeutic agents. 2. Coronary artery disease status post stenting to the mid LAD in 2012. 3. Hypertension. 4. Diabetes mellitus type 2, non-insulin requiring. Hemoglobin A1c in May 2012 was 10. She is uncertain of her most recent hemoglobin A1c. 5. Hypothyroidism. 6. Hyperlipidemia. PAST SURGICAL HISTORY 1. Exploratory laparotomy with subtotal colectomy and [id number] ileal proctostomy in June 2016. 2. Hysterectomy. 3. Tonsillectomy. 4. Stenting in mid LAD in 2012. Unit #: [id number] #: [id number] Patient: NOELLE AGARWAL ALLERGIES No known drug allergies HOME MEDICATIONS 1. Coreg 6.25 mg b.i.d. 2. Zestril 40 mg b.i.d. 3. Tintah 5/325 one every six hours p.r.n. for pain 4. Zofran 4 mg every four hours p.r.n. for nausea and vomiting 5. Loperamide 2 mg p.o. twice daily p.r.n. for diarrhea 6. Levothyroxine 150 mcg p.o. daily 7. Norvasc 10 mg at bedtime 8. Fiber gummies one tablet twice daily. SOCIAL HISTORY The patient has never smoked and does not drink any alcohol. She is living independently and performs all of her activities of daily living. FAMILY HISTORY Includes lung cancer in patient's brother. No known history of coronary artery disease. REVIEW OF SYSTEMS The patient again denies fever or any vision change, any sore throat. She denies any significant weight change recently, though she did have significant weight loss earlier in the year. She denies any chest pain, palpitations, shortness of breath, orthopnea, hematuria, dysuria. She did have fall. Denies any other tingling, numbness, weakness of the extremities. Otherwise 10-point review of systems is reviewed and is negative with the exception of history of present illness. PHYSICAL EXAMINATION GENERAL: The patient is awake, alert. She is oriented x3 and very pleasant, but appears really tired. VITALS: Temperature 97.9, blood pressure 151/78, pulse rate 87, respiratory rate 19, oxygen saturation 96% on room air. HEENT: Pupils equally round and reactive to light bilaterally. Anicteric sclera. No conjunctival pallor. Oropharynx with mildly dry mucous membranes. No erythema or exudate. NECK: Supple. No lymphadenopathy. No thyromegaly. No jugular venous distension. HEART: Regular rate and rhythm without murmurs, rubs or gallops. LUNGS: Clear to auscultation bilaterally without wheezes, rhonchi or crackles. ABDOMEN: Soft. It is tender in the epigastric region without any guarding or rebound. It is not distended and positive bowel sounds. EXTREMITIES: No cyanosis, clubbing or edema. Pedal pulses 2/4. SKIN: Warm, moist, without rash. Perhaps a very mild pallor noted. NEUROLOGIC: Cranial nerves II through XII intact. Sensation, strength and deep tendon reflexes are all normal in upper and lower extremities bilaterally including in the left leg. I also watched patient ambulate to the rest room and she was not having any difficulty. PSYCHIATRIC: No suicidal or homicidal ideation. MUSCULOSKELETAL: No joint abnormalities noted upon examination. No joint erythema or warmth. DIAGNOSTIC STUDIES IMAGING: X-ray of the left hip done in the emergency department does not reveal any fracture. Unit #: [id number] #: [id number] Patient: NOELLE AGARWAL LABORATORY: Lab work done in the emergency department reveals a white blood cell count of 2.0 with only 27% neutrophils with 69% lymphocytes, hemoglobin 10.2, platelet count of 157,000. Urinalysis reveals 1+ leukocyte esterase, 2-5 WBCs, no bacteria and no squamous cells. CMP reveals a sodium of 135, potassium 3.9, chloride 107, bicarb 22, BUN 22, creatinine 0.9, glucose of 186. LFTs including albumin are normal and lipase is normal at 16. Troponin is negative. CARDIOLOGY: EKG done in the emergency department reveals normal sinus rhythm. There are no other acute ST or T-wave abnormalities. ASSESSMENT 1. Intractable nausea with a single episode of emesis, chemotherapy induced. 2. Neutropenia, chemotherapy induced. 3. Status post fall with subsequent left hip soreness. 4. Colon cancer status post subtotal colectomy and recent initiation of chemotherapy on September 16, 2016. 5. Diabetes mellitus type 2 with unknown degree of control. 6. Hypertension. 7. Coronary artery disease status post stenting in 2012. 8. Hypothyroidism. 9. Normocytic anemia. PLAN 1. We will admit the patient to Med/Surg. 2. I will continue p.r.n. Zofran in addition to p.r.n. phenergan in regards to patient's intractable nausea and vomiting. I will start her on a full liquid diet and we will advance to a constant carbohydrate diet as tolerated. 3. We will place the patient in reverse isolation in regards to her neutropenia and we will also consult Dr. Arriola to evaluate the patient. She may require a dose of Granix prior to discharge. 4. We will have physical therapy/occupational therapy evaluate given recent fall. But again, I think the patient's ambulation appears appropriate. 5. We will obtained AccuChek a.c. and at bedtime and provide low-dose sliding scale in regards to her diabetes. We will also obtain hemoglobin A1c. 6. We will continue home antihypertensive and monitor blood pressure. 7. We will continue home thyroid dose and again, simply monitor. 8. Sequential compression devices for deep venous thrombosis prophylaxis. Proton pump inhibitor prophylaxis with Protonix. Dictated by Carla Varela M.D. [facility]/nikhil TD: 09/22/2016 13:53 JOB #: [id number] Unit #: [id number] #: [id number] Patient: MILLERNOELLE Sarah HISTORY AND PHYSICAL Page 1 of 1 X Carla Varela MD HISTORY AND PHYSICAL
--- NOTE | ~2016-09-21 | EKG ---
PATIENT: NOELLE BHATT UNIT #: [id number] Ventricular Rate: 86 BPM Atrial Rate: 86 BPM P-R Interval: 130 ms QRS Duration: 78 ms Q-T Interval: 368 ms QTC Calculation(Bezet): 440 ms P [place]: 71 degrees Calculated R [place]: 60 degrees Calculated T [place]: 55 degrees Diagnosis Line: Normal sinus rhythm Diagnosis Line: Nonspecific T wave abnormality Diagnosis Line: Abnormal ECG Diagnosis Line: When compared with ECG of 10-JUL-2016 05:40, Diagnosis Line: No significant change was found Diagnosis Line: Confirmed by LEANDRO MONAHAN MD ([id number]) on Diagnosis Line: 09/22/2016 10:09:36 AM INTERPRETING MD: KELLEY
--- NOTE | ~2016-09-21 | A ---
[facility] Nutrition Therapy DATE: 09/23/16 Patient: NOELLE BHATT Physician: GUANACO Address: [address] [place] [address] Room/Bed: [address] [place] [address], Zip: [place] [id number] Admit Date: 09/22/16 Date of : [birth year] Height: 5 3 Weight: 127 57.6 NUTRITIONAL ASSESSMENT: REASON: PT SEEN FOR 5 NUTRITION RISK PT RE: WEIGHT LOSS, ALSO CONSULT RE: WEIGHT LOSS PT IS 71 Y.O. FEMALE ADMITTED FOR FALL, N/V/D PMH: COLON CA (DIAGNOSED 06/2016) S/P SUBTOTAL COLECTOMY S/P RECENT CHEMOTHERAPY, CAD, HTN, HLD, DM, HYPOTHYROIDISM Anthropometrics: 5'3", WT: 127# (58 KG), BMI: 22.5 Labs: GLU: 157, NA+:132, CA+:8.0, A1c: 7.2, LIPASE: 16 Meds: PROTONIX, NOVOLOG, PHENERGAN, SYNTHROID, ZOFRAN, NACL I/O & Bowel function: 3130/2303, 3 BMs NOTED Skin Integrity: SCAR NOTED, NO KNOWN EDEMA Estimated Nutrition Needs: INCREASED NEEDS 2' WEIGHT LOSS NOTED, PMH, DECREASED PO INTAKE AND APPETITE NOTED Assessment: CHART REVIEWED AND EVENTS NOTED. PT SEEN FOR WEIGHT LOSS. PT CONFIRMS DECREASED PO INTAKE 2' DECREASED APPETITE D/T CHRONIC N/V/D. PT REPORTS UBW IS ~158#/LOSING ~31# PAST 6 MONTHS/19.6% SEVERE WEIGHT LOSS NOTED. THIS RD ENCOURAGED SMALL FREQUENT MEALS FOR ADEQUATE KCAL, PROTEIN AND FLUID INTAKE, PT AGREED TO GLUCERCRISTOFER [place] WHILE HERE AT [facility], RD TO ORDER. PT REPORTED NO DIET QUESTIONS AT THIS TIME. RD TO FOLLOW. SEE RECOMMENDATIONS BELOW. RD ALSO PROVIDED WRITTEN AND VERBAL N/V/D HOME DIET EDUCATION, PT DEMONSTRATED UNDERSTANDING OF THE TOPIC. Dx: UNINTENTIONAL WEIGHT LOSS R/T CHRONIC N/V/D, SUSPECTED DECREASED APPETITE AEB PT REPORT ABOVE, ~31#/19.6% SEVERE WEIGHT LOSS NOTED IN PAST 6 MONTHS, 5 NUTRITION RISK PT RE: WEIGHT LOSS. Intervention: 1. CC DIET 2. RD CONSULT 3. DIET EDUCATION 4. GLUCERNA SHAKES BID Monitoring, Evaluation and Goals: 1. ORAL INTAKE; CONSUME/TOLERATE >50% OF MEALS AND SUPPLEMENTS 2. WEIGHTS; PREVENT FURTHER WEIGHT LOSS; PROMOTE WEIGHT MAINTENANCE 3. LABS; WNL 4. GI; PROMOTE REGULAR GI FUNCTION [facility] Nutrition Therapy DATE: 09/23/16 Patient: NOELLE BHATT Physician: GUANACO Address: [address] [place] [address] Room/Bed: [address] [place] [address], Zip: [place] [address] Admit Date: 09/22/16 Date of : [birth year] Height: 5 3 Weight: 127 57.6 MONITOR: -PO INTAKE/APPETITE -WEIGHTS -SUPPLEMENT INTAKE -EDUCATION NEEDS Recommendations: 1. PLEASE ORDER STRAWBERRY GLUCERNA SHAKES BID W/MEALS FOR ADDITIONAL PROTEIN AND KCAL 2. CONSIDER ADDING GI SOFT TO CURRENT DIET ORDER ABOVE 3. APPRECIATE FAMILY AND STAFF TO ENCOURAGE ADEQUATE PO INTAKE 4. PLEASE WEIGH q 3 DAYS FOR MONITORING PURPOSES RD WILL F/U PER PROTOCOL PT IS MODERATELY COMPROMISED Respectfully, GABRIEL DE LUNA MS, RD, LD [employer] and Nutrition[employer] Services [facility] cc: client file
--- NOTE | ~2016-09-21 | CO ---
Unit #: [id number] #: [id number] Patient: NOELLE AGARWAL [id number] [address] [place], [place] [address] [id number] I MR#: [id number] NAME: NOELLE AGARWAL. ROOM: 242 Age: 71 Sex: F Admission Date: 09/22/2016 : 1945 Attending Physician: Carla Varela M.D. Primary Care Physician: Dori Dillard M.D. CONSULTATION REPORT HISTORY OF PRESENT ILLNESS Ms. Agarwal is a very pleasant 71-year-old lady with a diagnosis of colon cancer, status post resection and recent chemotherapy on 09/16/2016, presented to the emergency room with nausea, vomiting, and neutropenia. She has been hydrated, and her nausea and vomiting are better. She has a white count of 2.0 with only 27% neutrophils. I am going to go ahead and start her on some Neupogen a day, so that we can get her counts better. PAST MEDICAL HISTORY 1. Colon cancer. 2. Coronary artery disease. 3. Hypertension. 4. Diabetes. 5. Hypothyroidism. 6. Hyperlipidemia. MEDICATIONS At home include Coreg, Zestril, [place], Zofran, loperamide, L-thyroxine, Norvasc. SOCIAL HISTORY No tobacco use. No alcohol use. Lives independently. FAMILY HISTORY Lung cancer in the patient's brother. REVIEW OF SYSTEMS Positive for nausea, is better. Negative for fevers, chills, sweats, cough. Pain is controlled. 12 points otherwise negative on review of systems. PHYSICAL EXAMINATION GENERAL: Shows a well-developed, well-nourished lady, no acute distress. HEENT: Eyes show no scleral icterus. Pupils are equal. Mouth is moist. Hearing is intact. LUNGS: Clear, some expansion. HEART: Regular rate and rhythm. ABDOMEN: Benign. LYMPH: No adenopathy. SKIN: No rashes. 12-point exam is otherwise benign. Unit #: [id number] #: [id number] Patient: NOELLE AGARWAL ASSESSMENT Very pleasant lady with a diagnosis of neutropenia, dehydration, uncontrolled nausea and vomiting at home, admitted and is improving. PLAN Plan is to go ahead and start some Granix on her and follow counts. Continue antiemetics. I would like to thank physicians for the referral. Dictated by... Vinny Caldwell/adarsh TD: 09/22/2016 18:37 JOB #: [id number] CONSULTATION REPORT Page 1 of 1 X X CONSULTATION REPORT
--- NOTE | ~2016-09-21 | DS ---
Unit #: [id number] #: [id number] Patient: NOELLE AGARWAL [id number] [address] [address] [id number] I MR#: [id number] NAME: NOELLE AGARWAL. ROOM: 242 Age: 71 Sex: F Admission Date: 09/22/2016 : 1945 Discharge Date: 09/24/2016 Attending Physician: Carla Varela M.D. Primary Care Physician: Dori Dillard M.D. DISCHARGE SUMMARY PRINCIPAL DIAGNOSES 1. Intractable nausea and vomiting, chemotherapy induced. 2. Chemotherapy-induced pancytopenia. 3. Chemotherapy-induced neutropenia status post Granix. Discharge white blood cell count 5.4. 4. Non-anion gap metabolic acidosis secondary to chronic diarrhea. 5. Chronic diarrhea secondary to prior history of hemicolectomy. 6. Normocytic anemia. Discharge hemoglobin 9. 7. Diabetes mellitus type 2, non-insulin requiring and controlled. Hemoglobin A1C 7.2. 8. Hypertension. 9. Vitamin B12 deficiency with vitamin B12 level of 137. 10. Colon cancer, currently undergoing chemotherapy. 11. Coronary artery disease. 12. Hypothyroidism. 13. Hyperlipidemia. [employer] Dr. Arriola, oncology. DIAGNOSTIC STUDIES IMAGING: X-ray of the left hip on September 22, 2016, which was normal. CLINICAL HISTORY AND HOSPITAL COURSE Ms. Agarwal is a very nice 71-year-old female who presented to the emergency department with intractable nausea and vomiting 4 days after initiation of chemotherapy for her underlying colon cancer. She was found to be significantly neutropenic in the emergency department. The patient was subsequently admitted. The patient was treated symptomatically for her nausea and vomiting. This is now resolved, and she is tolerating a regular diet. She does have chronic diarrhea secondary to her history of colectomy that was exacerbated by chemotherapy. Stool studies were negative, and we will provide Lomotil for p.r.n. basis at home. In regard to the patient's neutropenia, she did receive 2 doses of Granix, and on day of discharge her white blood cell count is now 5.4. She is still mildly anemic with a hemoglobin of 9, and platelet count is 111,000. This can be followed up by Dr. Arriola as an outpatient. Due to the patient's anemia, iron and vitamin B12 were checked, and she was found to be significantly low on vitamin B12, as well as iron. These will be replaced with oral supplementation on discharge. Unit #: [id number] #: [id number] Patient: NOELLE AGARWAL The patient today feels well, will be discharged home with close followup with Dr. Arriola. DISCHARGE CONDITION Stable. DISCHARGE STATUS Discharge to home. DISCHARGE MEDICATIONS 1. Lomotil 2.5 mg 1-2 tablets p.o. q.8 hours p.r.n. diarrhea (# given 30). 2. Loperamide 2 mg b.i.d. p.r.n. diarrhea. 3. Phenergan 25 mg p.o. q.6 hours p.r.n. nausea and vomiting. 4. Coreg 6.25 mg p.o. b.i.d. 5. Norvasc 10 mg daily. 6. Zestril 40 mg b.i.d. 7. [place] 5/325 mg 1 tablet p.o. q.6 hours p.r.n. pain (# given 25). 8. Fiber Gummies 1 b.i.d. 9. Levothyroxine 150 mcg p.o. daily. 10. Vitamin B12 - 1,000 mcg p.o. daily, which can be purchased over the counter. 11. Ferrous gluconate 324 mg p.o. daily. DISCHARGE INSTRUCTIONS Patient was instructed to follow a constant carb diet in addition to a hearth healthy diet. She can increase her activity as tolerated. FOLLOW-UP Patient will follow up with Dr. Arriola next week as previously arranged. Dictated by... Carla Varela M.D. BLU/ranjeet TD: 09/24/2016 16:20 JOB #: [id number] DISCHARGE SUMMARY Page 1 of 1 X Carla Varela MD DISCHARGE SUMMARY
[~2016-09-21 23:36] MED LIST changes: -B-121000 MC1 PO; -FERROUS GLUCON324 M2 PO; -LOMOTIL WHITE2.5 M1 PO; -PHENERGAN25 M1 PO
[2016-09-22 01:46] LABS: BASOPHIL% 0.8 % (0-2.5); DIFF IND YES; EOSINOPHIL# 0.1 X10e3 (0-0.7); EOSINOPHIL% 3.1 % (0.0-7.0); HEMATOCRIT 32.9 % (35.0-45.0); HEMOGLOBIN 10.2 gm/dL (12.0-16.0); LYMPHOCYTE# 0.9 X10e3 (1.0-3.5); LYMPHOCYTE% 46.9 % (17.0-45.0); MEAN CELL VOLUME 71.9 FL (83-96); MEAN CORPUSCULAR HEMOGLOBIN 22.4 PG (28-34); MEAN CORPUSCULAR HGB CONC 31.1 g/dL (30-36); MONOCYTE# 0.1 X10e3 (0-1.0); MONOCYTE% 2.8 % (3.0-12.0); NEUTROPHIL# 0.9 X10e3 (1.5-7.1); NEUTROPHIL% 46.4 % (40-75); PLATELET COUNT 157 X10e3 (140-420); RED BLOOD COUNT 4.57 X10e (3.90-5.30); RED CELL DISTRIBUTION WIDTH 16.8 % (11.0-15.5)
[2016-09-22 01:52] LABS: POC - CKMB <1.0 ng/mL (0.0-7.9); POC - TROPONIN <0.05 ng/mL (<=0.05)
[2016-09-22 02:08] LABS: ALBUMIN SERUM 3.7 g/dL (3.5-5.0); BILIRUBIN, DIRECT 0.1 mg/dL (0.0-0.2); BILIRUBIN,INDIRECT 0.7 mg/dL (0.0-0.9); BILIRUBIN,TOTAL 0.8 mg/dL (0.2-2.0); BUN/CREATININE RATIO 24.44; CREATININE SERUM 0.9 mg/dL (0.6-1.4); GLOM FILT RATE Estimated 65.3 mL/min (>60); POTASSIUM 3.9 mmol/L (3.5-5.1)
[2016-09-22 02:42] LABS: PLATELET ESTIMATE NORMAL (NORMAL)
[2016-09-22 04:22] LABS: URINE SOURCE CLEAN CATCH
[2016-09-22 04:28] LABS: URINE APPEARANCE CLEAR; URINE BILIRUBIN NEG (NEG); URINE BLOOD NEG (NEG); URINE COLOR YELLOW; URINE GLUCOSE 250 MG/DL (NEG); URINE KETONE NEG (NEG); URINE LEUKOCYTE ESTERASE 1+ (NEG); URINE NITRATE NEG (NEG); URINE PROTEIN NEG (NEG); URINE SPECIFIC GRAVITY 1.011 (1.003-1.035); URINE UROBILINOGEN 0.2 MG/DL (NEG)
[2016-09-22 04:30] LABS: URBCS1 AUWI 0-2 /[HPF] (0-2); URINE BACTERIA AUWI NEG (NEGATIVE); URINE SQUAMOUS EPITHELIAL CELL NONE SEEN /[HPF]
[2016-09-22 04:32] LABS: CULTURE INDICATED? NO
[2016-09-23 06:11] LABS: BASOPHIL% 0.4 % (0-2.5); EOSINOPHIL# 0.1 X10e3 (0-0.7); EOSINOPHIL% 2.2 % (0.0-7.0); HEMATOCRIT 28.3 % (35.0-45.0); HEMOGLOBIN 8.9 gm/dL (12.0-16.0); LYMPHOCYTE# 1.5 X10e3 (1.0-3.5); LYMPHOCYTE% 60.6 % (17.0-45.0); MEAN CELL VOLUME 72.1 FL (83-96); MEAN CORPUSCULAR HEMOGLOBIN 22.6 PG (28-34); MEAN CORPUSCULAR HGB CONC 31.4 g/dL (30-36); MEAN PLATELET VOLUME 9.4 FL (6.5-11.5); MONOCYTE# 0.1 X10e3 (0-1.0); MONOCYTE% 4.3 % (3.0-12.0); NEUTROPHIL# 0.8 X10e3 (1.5-7.1); NEUTROPHIL% 32.5 % (40-75); PLATELET COUNT 115 X10e3 (140-420); RED BLOOD COUNT 3.93 X10e (3.90-5.30); RED CELL DISTRIBUTION WIDTH 17.2 % (11.0-15.5); WHITE BLOOD COUNT 2.4 X10e3 (4.0-10.5)
[2016-09-23 06:15] LABS: DIFF IND NO
[2016-09-23 06:39] LABS: CREATININE SERUM 0.6 mg/dL (0.6-1.4); MAGNESIUM 1.6 mg/dL (1.6-3.0); POTASSIUM 3.7 mmol/L (3.5-5.1)
[2016-09-23 10:12] LABS: IRON SERUM 14 ug/dL (28-170); TOTAL IRON BINDING CAPACITY 253 ug/dL (269-535); TRANSFERRIN 181 mg/dL (192-382); TRANSFERRIN SATURATION 6 % (20-50)
[2016-09-24 06:01] LABS: MEAN CELL VOLUME 71.5 FL (83-96); MEAN CORPUSCULAR HEMOGLOBIN 22.2 PG (28-34); MEAN CORPUSCULAR HGB CONC 31.1 g/dL (30-36); MEAN PLATELET VOLUME 9.5 FL (6.5-11.5); RED BLOOD COUNT 4.06 X10e (3.90-5.30); RED CELL DISTRIBUTION WIDTH 17.2 % (11.0-15.5)
[2016-09-24 06:02] LABS: WHITE BLOOD COUNT 5.4 X10e3 (4.0-10.5)
[2016-09-24 06:31] LABS: CALCIUM SERUM 8.4 mg/dL (8.4-10.2); CREATININE SERUM 0.7 mg/dL (0.6-1.4); GLOM FILT RATE Estimated 88.4 mL/min (>60); MAGNESIUM 2.1 mg/dL (1.6-3.0); POTASSIUM 3.5 mmol/L (3.5-5.1)
[2016-09-24] MEDS ORDERED: LOMOTIL WHITE2.5 M1 PO (11:17)
[2016-09-24] MEDS ORDERED: PHENERGAN25 M1 PO (11:20)
[2016-09-24] MEDS ORDERED: FERROUS GLUCON324 M2 PO (11:22)
[2016-09-24] MEDS ORDERED: B-121000 MC1 PO (11:22)
== END 2016-09-24 14:15 | disposition home or self-care (01) | DRG 809 ==
LOC: CED 23:36 → CEDOF 09-22 05:00 → CED 09-22 05:00 → CEDOF 09-22 05:12 → CED 09-22 05:12 → C2A 09-22 06:55 → CEDOF 09-22 06:55 → C2A 09-22 09:22
PROVIDERS: Emergency Medicine; Internal Medicine; Internal Medicine Hematology & Oncology
DX: D70.1 Agranulocytosis secondary to cancer chemotherapy (principal); C18.9 Malignant neoplasm of colon, unspecified; D69.59 Other secondary thrombocytopenia; I10 Essential (primary) hypertension; E53.8 Deficiency of other specified B group vitamins; E86.0 Dehydration; R11.2 Nausea with vomiting, unspecified; D64.9 Anemia, unspecified; T45.1X5A Adverse effect of antineoplastic and immunosuppressive drugs, initial encounter; Z90.49 Acquired absence of other specified parts of digestive tract; E11.9 Type 2 diabetes mellitus without complications; I25.10 Atherosclerotic heart disease of native coronary artery without angina pectoris; Z95.5 Presence of coronary angioplasty implant and graft; E03.9 Hypothyroidism, unspecified; Z80.1 Family history of malignant neoplasm of trachea, bronchus and lung; K52.9 Noninfective gastroenteritis and colitis, unspecified; E78.5 Hyperlipidemia, unspecified
CPT/HCPCS: 73502; 80048; 80076; 81003; 82553; 82607; 82947; 83036; 83540; 83550; 83690; 83735; 84484; 85025; 85027; 87045; 87177; 87209; 87427; 87493; 87899; 93005; 96361; 96374; 96375; 96376; 99285; C9113; J1447; J1815; J2405; J2550; J3475

== ENCOUNTER → 2016-11-08 | Day surgery (SDC) | payer MEDICARE, OTHER ==
[~2016-11-08] MED LIST changes: +B-121000 MC1 PO; +FERROUS GLUCON324 M2 PO; +LOMOTIL WHITE2.5 M1 PO; +PHENERGAN25 M1 PO
--- NOTE | ~2016-11-08 | OR ---
Unit #: [id number] #: [id number] Patient: NOELLE BHATT [id number] [address] [place], [place] [address] [id number] O MR#: [id number] NAME: NOELLE BHATT ROOM: Date of Procedure: 11/08/2016 Admission Date: 11/08/2016 Surgeon: Stevie Eaton Jr., M.D. : 1945 Attending Physician: Stevie Eaton Jr., M.D. Primary Care Physician: Dori Dillard M.D. OPERATIVE REPORT INDICATION FOR PROCEDURE The patient is a 71-year-old white female, who has had a known past history for cancers, required chemotherapy and is presently done with her chemotherapy. She had a Port-A-Cath placed for IV access and desires removal of it and she is brought in this time for this procedure at her request. PREOPERATIVE DIAGNOSIS Desires removal of Port-A-Cath, this now of no use. POSTOPERATIVE DIAGNOSIS Desires removal of Port-A-Cath, this now of no use. ANESTHESIA 1% Xylocaine with epinephrine locally. PROCEDURE PERFORMED Excision and removal of Port-A-Cath, right subclavian area. DESCRIPTION OF PROCEDURE The patient was positioned in supine position. After being prepped and draped in routine fashion, she was anesthetized locally in the area of the Port-A-Cath with 1% Xylocaine with epinephrine. A transverse incision was made approximately 1-1/2 to 2 inches in length. This was carried down through the dermis to the area of the port. The port was very superficial. This was then freed up along with the catheter and then completely removed from the surrounding tissue. Pressure was held on the area, where the catheter had been removed for approximately 5 minutes and after no bleeding was noted, the capsule was stripped from the pouch and hemostasis achieved with Bovie cautery. The deeper tissue approximated with interrupted 3-0 Vicryl sutures. Skin edges approximated with stainless-steel skin clips and skin stapling device. Sterile compressive dressing was applied externally. Estimated blood loss less than 50 mL. The patient received no fluids during the procedure. Sponges and instrument counts were correct x3. No drains used. No complications. The patient was discharged in satisfactory condition. Dictated by... Stevie Eaton Jr., M.D. Unit #: [id number] #: [id number] Patient: NOELLE BHATT Sarah CARTWRIGHT/adarsh TD: 11/08/2016 12:31 JOB #: [id number] CC: Dori Dillard M.D. OPERATIVE REPORT Page 1 of 1 X Stevie Eaton MD X PROCEDURE OPERATIVE NOTE
== END | disposition home or self-care (01) ==
LOC: CSUR 08:26
DX: Z45.2 Encounter for adjustment and management of vascular access device (principal); E03.9 Hypothyroidism, unspecified; I25.10 Atherosclerotic heart disease of native coronary artery without angina pectoris; Z87.01 Personal history of pneumonia (recurrent); Z95.5 Presence of coronary angioplasty implant and graft; Z85.038 Personal history of other malignant neoplasm of large intestine; Z90.710 Acquired absence of both cervix and uterus
CPT/HCPCS: 82947; 88304